=== PATIENT | female | born 1945 | race Caucasian/White ===

== ENCOUNTER → 2017-06-26 | Outpatient (CLI) | payer OTHER, BC ==
[2017-06-26 18:21] LABS: ALBUMIN 4.3 gm/dl (3.4-5.0); ALT/SGPT 29 U/L (12-78); AST/SGOT 24 U/L (15-37); BLOOD UREA NITROGEN 28 mg/dl (7-18); CALCIUM 9.1 mg/dl (8.5-10.1); CARBON DIOXIDE 29 mmol/L (21-32); CREATININE 0.69 mg/dl (0.60-1.20); GLUCOSE 94 mg/dl (70-99); POTASSIUM 3.7 mmol/L (3.5-5.1); SODIUM 140 mmol/L (136-145)
[2017-06-26 18:32] LABS: ALKALINE PHOSPHATASE 45 U/L (45-117); TOTAL PROTEIN 7.6 gm/dl (6.4-8.2)
== END | disposition home or self-care (01) ==
LOC: C.LABMFLN 15:07
PROVIDERS: ATTEND Family Medicine
DX: K90.0 Celiac disease (principal)

== ENCOUNTER → 2017-07-06 | Outpatient (CLI) | payer OTHER, BC | END | disposition home or self-care (01) | LOC: C.LABMFLN 14:03 | PROVIDERS: ATTEND Family Medicine | DX: E55.9 Vitamin D deficiency, unspecified (principal); K90.0 Celiac disease ==

== ENCOUNTER 2023-06-05 14:56 | Inpatient (IN) ==
[2023-06-05 15:54] LABS: Basophils # (auto) 0.01 K/uL (0.00-0.20); Basophils % (auto) 0.4 %; Eosinophils # (auto) 0.03 K/uL (0.00-0.50); Eosinophils % (auto) 1.2 %; Hematocrit (blood only) 26.6 % (37.0-47.0); Hemoglobin 8.6 g/dl (12.0-16.0); Immature Granulocytes # (auto) 0.01 K/uL (0.01-0.20); Immature Granulocytes % (auto) 0.4 %; Lymphocytes # (auto) 1.03 K/uL (1.20-3.40); Mean Corpuscular Hemoglobin 32.8 pg (25.0-34.0); Mean Corpuscular Hgb Conc 32.3 g/dL (32.0-36.0); Mean Corpuscular Volume 101.5 fL (80.0-100.0); Mean Platelet Volume 9.3 fL (9.4-12.4); Monocytes # (auto) 0.25 K/uL (0.11-0.59); Neutrophils # (auto) 1.18 K/uL (1.40-6.50); Platelet Count 152 K/uL (130-400); RDW Coefficient of Variation 15.8 % (11.5-14.5); RDW Standard Deviation 58.1 fL (36.4-46.3); Red Blood Count 2.62 M/uL (4.20-5.40); White Blood Count 2.51 K/ul (4.8-10.8)
[2023-06-05 16:09] LABS: Alanine Aminotransferase 9 U/L (7-52); Albumin Globulin Ratio 1.3 (0.9-2); Albumin Level 4.2 gm/dl (3.4-5.0); Alkaline Phosphatase 59 U/L (34-104); Anion Gap 9 (3-11); Aspartate Aminotransferase 18 U/L (13-39); BUN Creatinine Ratio 31.2 (10-20); Bilirubin,Total 0.6 mg/dl (0.2-1.0); Blood Urea Nitrogen 24 mg/dl (6-23); Calcium 9.5 mg/dl (8.6-10.3); Carbon Dioxide 24 mmol/L (21-32); Chloride 102 mmol/L (98-107); Est GFR (African American) 86.9 ml/min; Globulin 3.2 gm/dl (2.5-4.0); Glucose 95 mg/dl (70-99(Fasting)); Sodium 135 mmol/L (136-145); Total Protein 7.4 gm/dl (6.0-8.3)
--- NOTE | 2023-06-05 16:09 | Emergency Department Note ---
Impression & Plan Petechiae, Syncope, Right leg swelling, Leukopenia, Anemia ED Provider Note NAME: LIANET RODRIGUEZ AGE: 78 SEX: F : 1945 ARRIVES VIA: Walk-In INFORMANT: Patient, ED PROVIDER(S): Dheeraj Ulloa MD CHIEF COMPLAINT: Outpatient referral, syncope MEDICAL DECISION MAKING: The patient presents due to concern for syncope and was referred as an outpatient. IV was established and blood work is obtained. Patient's initial blood work shows leukopenia and anemia with a normal platelet count. The patient's kidney function is unremarkable. Prerenal azotemia noted. COVID flu and RSV negative. Initial troponin 27.6. Given the patient's repeated episodes of syncope today I do believe the patient would warrants inpatient treatment and monitoring. The patient is also not had a recent echocardiogram. I did speak with the on-call hospital service Dr. Hess the patient was admitted to the medicine service. DVT ultrasound negative. Discussion w/ other healthcare providers: Dr. Hess inpatient medicine service Prior /Outside records reviewed: I reviewed a primary care visit from May 10, [address] Yu. Patient was seen for petechial rash at that time. Patient did have an ultrasound of the arterial duplex lower extremity bilateral that was ordered in addition to CBC peripheral smear B12 folic acid and TSH. Differential diagnosis: Vasovagal event, dehydration, infection, hypoglycemia, electrolyte abnormalities, arrhythmia, pulmonary embolism, seizure among others were considered. Diagnostics, as interpreted by me: ECG: Sinus, rate of 89, normal intervals, normal axis no ST elevations. Cardiac monitoring: An order was placed for continuous cardiac monitoring. The monitor shows a rate of 85 with sinus rhythm. Patient was placed on pulse oximetry Medical decision rules: Wells score Imaging studies: I informally interpreted the patient's chest x-ray which does not show obvious pneumonia or pneumothorax with formal report to follow. HPI: Patient presents due to concern for episodes of syncope. The patient states that she has been passing out and had done so may be up to 7 times today. The patient states that the way that she do that sometime it passes sometimes she was watching the television and that it had gone further into the show and that she had a blank in her memory. Patient does not believe that she is having short-term memory issues or memory loss but believes that she is passing out. Patient denies any chest pains or shortness of breath. Patient denies any bloody stool or dark stools. Patient has been seen for worsening lower extremity swelling as well as bruising which has gotten progressively worse and that this began ever since she given amoxicillin prophylactically for dental procedure back in at the end of March. Patient states that she has been worked up substantially in the past to rule out things like leukemia and the other thing they have not ruled out is MGUS. The patient is also had 2 prior bone marrow biopsies. Patient is accompanied by her daughter who also confirms the same. PAST MEDICAL HISTORY: See Below PAST SURGICAL HISTORY: See Below SOCIAL HISTORY: See Below HOME MEDICATIONS: See Below ALLERGIES: See Below VITALS: See Below PHYSICAL EXAMINATION: GENERAL: NAD, non-toxic. EYE EXAM: Normal conjunctiva. PERRL, no anisocoria and EOM's grossly intact w/o pain. OROPHARYNX: Moist mucus membranes, grossly normal dentition. NECK: Supple, no nuchal rigidity, no adenopathy, non-tender. No signs of meningismus. FROM of the neck with good chin to chest and neck extension. No stridor. LUNGS: Clear to auscultation. Normal chest wall mechanics. HEART: NSR, no MRG. ABDOMEN: Abdomen soft, non-tender, no masses, no rebound or guarding. BACK: No CVA TTP. SKIN: Bruising noted most prominent to the posterior aspect of the right thigh and knee. Petechiae noted to the bilateral lower extremities UPPER EXTREMITIES: Upper extremities are grossly normal. LOWER EXTREMITIES: Grossly normal, right greater than left lower extremity edema with associated bruising/petechiae as noted above NEURO EXAM: A&O x3, cranial nerves II-XII grossly intact, normal speech, moves all 4 extremities. Past Med/Surg History Medical History Abnormal echocardiogram Nocturia Protein calorie malnutrition Abnormal CT scan, kidney Plasma cell dyscrasia MGUS Mitral valve prolapse Mild mitral valve prolapse, Mild MR per 01/2021 echo Elevated CK Following with [facility] neurosurgery- planning for future muscle biopsy (not done yet) Multiple lacunar infarcts Myalgia Seen by [facility] neurosurgery (12/23/21) for evaluation of myalgias, headache, eye pressure and facial discomfort for muscle biopsy- has not been completed yet Right sided weakness Right cervical radiculopathy Vertigo Coronary atherosclerosis Possible/noted on CT > evaluated by cardio, unremarkable echo performed- did not feel stress testing or coronary angiogram indicated per 01/2021 cardiology office visit Microscopic hematuria Hyperparathyroidism Hiatal hernia Hypothyroidism Tx [id number], "taken off of meds due to extreme weight loss" Multiple pulmonary nodules monitoring w/ PCP Osteoporosis, post-menopausal Surgical History History of bone marrow biopsy H/O colonoscopy History of esophagogastroduodenoscopy (EGD) + EUS H/O breast biopsy S/P tubal ligation H/O oophorectomy + left salpingectomy H/O dilation and curettage Family History Mother Heart disease Diabetes Myocardial infarction Pancreatic cancer Father CHF (congestive heart failure) Kidney disease Bladder cancer Myocardial infarction Grandfather Myocardial infarction Social History Smoking Status: Never smoker Second Hand Exposure: No; Do You Dip or Chew Tobacco: No; Hx Alcohol Use: No Hx Substance Use: No Preferred Language: Macedonian Communication Ability: Effective Visual Impairment: No Limitations 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 Required: No Beliefs That Will Affect Care: None Current Living Situation: Alone Feels Safe at Home: Yes Assistive Devices: None Allergies Allergies Allergy/AdvReac Type Severity Reaction Status Date / Time Iodinated Contrast Media Allergy Intermediate Hives Verified 05/10/23 13:24 azithromycin Allergy Rash Verified 06/02/23 10:18 clindamycin Allergy Rash Verified 06/02/23 10:18 mirabegron [From Myrbetriq] AdvReac Severe hallucinati Verified 05/10/23 13:24 ons amoxicillin AdvReac Intermediate Rash Verified 05/18/23 10:40 aspirin [From Percodan] AdvReac Intermediate constipatio Verified 05/10/23 13:24 n hydrocodone [From Vicodin] AdvReac Intermediate Nausea Verified 05/10/23 13:24 lorazepam AdvReac Intermediate "make me Verified 05/10/23 13:24 weird" oxycodone [From Percocet] AdvReac Intermediate constipatio Verified 05/10/23 13:24 n lactose AdvReac Verified 06/06/23 15:59 Amoxicillin Allergy Intermediate Rash Uncoded 05/18/23 11:04 erythromycin Allergy Rash Uncoded 06/02/23 10:18 Home Meds Previous Rx's Medication Instructions Recorded diazepam 5 mg tablet See Rx Instructions PO HS PRN 05/31/23 muscle spasm #60 tabs ergocalciferol (vitamin D2) 1,250 50,000 unit PO Q7D #7 caps 06/07/23 mcg (50,000 unit) capsule Results & Data (ED) Vital Signs Vital Signs - 24 hr 06/05/23 15:04 Temperature 36.5 C Temperature Source Temporal Artery Scan Pulse Rate 79 Pulse Rhythm Regular Respiratory Rate 20 Respiratory Effort / Characteristics Non-Labored Spontaneous Respiratory Depth Normal Blood Pressure 136/86 Blood Pressure Mean 102 Pulse Oximetry 97 Sepsis Recent Fever Within 48 Hours No Sepsis New/Unexplained Change in Mental Status No Sepsis Action Taken by Nursing No Action Required Home Medications Current Medication List: was personally reviewed by me Laboratory Data Attestation: I reviewed the patient's lab results. 06/07/23 08:12 06/07/23 08:12 Lab Results 06/05/23 06/05/23 Range/Units 15:28 17:31 WBC 2.51 L (4.8-10.8) K/ul RBC 2.62 L (4.20-5.40) M/uL Hgb 8.6 L (12.0-16.0) g/dl Hct 26.6 L (37.0-47.0) % MCV 101.5 H (80.0-100.0) fL MCH 32.8 (25.0-34.0) pg MCHC 32.3 (32.0-36.0) g/dL RDW Std Deviation 58.1 H (36.4-46.3) fL RDW Coeff of Carl 15.8 H (11.5-14.5) % Plt Count 152 (130-400) K/uL MPV 9.3 L (9.4-12.4) fL Immature Gran % (Auto) 0.4 % Neut % (Auto) 47.0 % Lymph % (Auto) 41.0 % Forest % (Auto) 10.0 % Eos % (Auto) 1.2 % Baso % (Auto) 0.4 % Neut # (Auto) 1.18 L (1.40-6.50) K/uL Lymph # (Auto) 1.03 L (1.20-3.40) K/uL Forest # (Auto) 0.25 (0.11-0.59) K/uL Eos # (Auto) 0.03 (0.00-0.50) K/uL Baso # (Auto) 0.01 (0.00-0.20) K/uL Immature Gran # (Auto) 0.01 (0.01-0.20) K/uL PT 11.4 (9.0-12.0) Seconds INR 1.0 (0.9-1.1) APTT 24 (21-31) Seconds PTT Ratio 0.9 Sodium 135 L (136-145) mmol/L Potassium 4.0 (3.5-5.1) mmol/L Chloride 102 (98-107) mmol/L Carbon Dioxide 24 (21-32) mmol/L Anion Gap 9 (3-11) BUN 24 H (6-23) mg/dl Creatinine 0.77 (0.6-1.2) mg/dl Est Cr Clr Drug Dosing Not Reportable Est GFR ( Amer) 86.9 ml/min Est GFR (Non-Af Amer) 75.0 ml/min BUN/Creatinine Ratio 31.2 H (10-20) Glucose 95 (70-99(Fasting)) mg/dl Calcium 9.5 (8.6-10.3) mg/dl Total Bilirubin 0.6 (0.2-1.0) mg/dl AST 18 (13-39) U/L ALT 9 (7-52) U/L Alkaline Phosphatase 59 (34-104) U/L Troponin I High Sens 27.6 H 21.3 H (0-14) pg/ml Total Protein 7.4 (6.0-8.3) gm/dl Albumin 4.2 (3.4-5.0) gm/dl Globulin 3.2 (2.5-4.0) gm/dl Albumin/Globulin Ratio 1.3 (0.9-2) SARS-CoV-2 (PCR) NEGATIVE (Negative) Influenza Type A (PCR) Negative (Neg) Influenza Type B (PCR) Negative (Neg) RSV (RT-PCR) Negative (Neg) Administered Medications Discontinued Medications Acetaminophen (Acetaminophen 325 Mg Tab) 650 mg PO Q4H PRN PRN Reason: Pain or Fever Stop: 07/05/23 19:37 Last Admin: 06/05/23 19:59 Dose: 650 mg Documented By: FIFIJ Acetaminophen (Acetaminophen 500 Mg Tab) 1,000 mg PO Q8H PRN PRN Reason: Pain or Fever Stop: 07/06/23 00:13 Last Admin: 06/07/23 06:48 Dose: 1,000 mg Documented By: Admin: 06/06/23 21:33 Dose: 1,000 mg Documented By: Admin: 06/06/23 11:33 Dose: 1,000 mg Documented By: Admin: 06/06/23 00:42 Dose: 1,000 mg Documented By: CAESAR Diazepam (Diazepam 5 Mg Tablet) 5 mg PO HS PRN PRN Reason: Muscle Spasm Stop: 07/06/23 00:11 Last Admin: 06/06/23 00:37 Dose: 5 mg Documented By: CAESAR Diazepam (Diazepam 5 Mg Tablet) 5 mg PO HS PRN PRN Reason: Muscle Spasm Stop: 07/06/23 00:11 Last Admin: 06/06/23 22:22 Dose: 5 mg Documented By: CAESAR Diazepam (Diazepam 5 Mg Tablet) 5 mg PO HS [facility] Stop: 07/06/23 20:59 Last Admin: 06/06/23 22:21 Dose: 5 mg Documented By: CAESAR Ergocalciferol (Ergocalciferol 50,000 Units 1250 Mcg Cap) 50,000 units PO Q7D [facility] Stop: 07/06/23 17:59 Last Admin: 06/06/23 21:32 Dose: 50,000 units Documented By: CAESAR Gadobutrol (Gadobutrol 65ml Vial) 4.5 ml IV ONCE ONE Stop: 06/06/23 19:05 Last Admin: 06/06/23 19:04 Dose: 4.5 ml Documented By: CAMILLA Hydromorphone HCl (Hydromorphone Inj 0.5 Mg/0.5 Ml Syr) 0.5 mg IV NOW ONE Stop: 06/06/23 04:14 Last Admin: 06/06/23 04:28 Dose: 0.5 mg Documented By: CAESAR Sodium Chloride (Nss) 1,000 mls @ 80 mls/hr IV .[id number] [facility] Stop: 06/07/23 18:29 Last Admin: 06/07/23 12:40 Dose: Not Given Documented By: Infusion: 06/07/23 12:40 Dose: Infused Documented By: Admin: 06/06/23 21:32 Dose: 80 mls/hr Documented By: CAESAR Polyethylene Glycol (Polyethylene (Miralax) 17 Gm Pack) 17 gm PO DAILY PRN PRN Reason: Constipation Stop: 07/06/23 22:35 Last Admin: 06/06/23 23:22 Dose: 17 gm Documented By: CAESAR Imaging Data Radiologist's Impression: Chest X-Ray 06/05/23 15:08 XR chest 1V not portable HISTORY: Chest pain, nonspecific COMPARISON: Chest 01/19/2022. FINDINGS: No pneumothorax. No pleural effusions. The lungs remain hyperexpanded. The heart is normal in size. Biapical densities persist and favor scarring. No new focal lung consolidations to suggest a pneumonia. No evidence for pulmonary edema. Emphysema again noted. No acute fractures. Vertebroplasty at L1. Calcifications within the aortic knob. IMPRESSION: No significant change compared to the prior study. No acute process. ACT 112: Negative or not required by law. Electronically signed by: Lukas Thomas M.D. 06/05/2023 4:36 PM Venous Doppler Study 06/05/23 16:42 BILATERAL LOWER EXTREMITY VENOUS DOPPLER HISTORY: Right leg swelling, petechiae, bruising COMPARISON STUDY: None. FINDINGS: There is normal compressibility, flow, and augmentation within the bilateral lower extremity deep venous systems. IMPRESSION: No DVT within the right or left lower extremity. ACT 112: Negative or not required by law. Electronically signed by: Lukas Thomas M.D. 06/05/2023 6:25 PM Discharge Plan Visit Data Chief Complaint: Referred by Doctor Stated Complaint: WAS TOLD TO COME IN ED Provider: Dheerja Ulloa Discharge Problem: Petechiae, Syncope, Right leg swelling, Leukopenia, Anemia Patient Disposition: Admitted As Inpatient Discharge Instructions Interventions: ED Discharge Assessment Last Done: 06/05/23 18:40 Discharge Problem: Syncope Qualifiers: Syncope type: unspecified Qualified Code(s): R55 - Syncope and collapse Leukopenia Qualifiers: Leukopenia type: unspecified Qualified Code(s): D72.819 - Decreased white blood cell count, unspecified Anemia Qualifiers: Anemia type: unspecified type Qualified Code(s): D64.9 - Anemia, unspecified
[2023-06-05 16:16] LABS: Troponin I High Sensitivity 27.6 pg/ml (0-14)
[2023-06-05 16:20] LABS: Partial Thromboplastin Ratio 0.9; Partial Thromboplastin Time 24 Seconds (21-31); Prothrombin Time 11.4 Seconds (9.0-12.0)
[2023-06-05 16:25] LABS: Influenza A virus by PCR Negative (Neg); Influenza B virus by PCR Negative (Neg); RSV by PCR Negative (Neg); SARS CoV2 RNA(COVID-19) Ceph NEGATIVE (Negative)
--- NOTE | 2023-06-05 16:37 | XRay Report ---
XR chest 1V not portable HISTORY: Chest pain, nonspecific COMPARISON: Chest 01/19/2022. FINDINGS: No pneumothorax. No pleural effusions. The lungs remain hyperexpanded. The heart is normal in size. Biapical densities persist and favor scarring. No new focal lung consolidations to suggest a pneumonia. No evidence for pulmonary edema. Emphysema again noted. No acute fractures. Vertebroplast y at L1. Calcifications within the aortic knob. IMPRESSION: No significant change compared to the prior study. No acute process. ACT 112: Negative or not required by law. Electronically signed by: Lukas Thomas M.D. 06/05/2023 4:36 PM
--- NOTE | 2023-06-05 17:42 | History & Physical Report ---
Date of Service June 05, 2023 Assessment & Plan (1) Syncope: Plan: Monitor on telemetry for arrhythmia Echocardiogram to assess for valvular disease Serial hemoglobin measurements - consider transfusion below 9 if ongoing syncopal episodes to rule this out as a cause History of Present Illness Chief Complaint: Syncope Primary Care Provider: Skyla Yu DO Shamika Reaves is a 78-year-old female who presents to the ER with 6-7 syncopal episodes. Associated dizziness, nausea, shortness of breath. Petechiae and bruising to bilateral lower extremities. She does not take any anticoagulation or antiplatelets. Allergies Allergy/AdvReac Type Severity Reaction Status Date / Time Iodinated Contrast Media Allergy Intermediate Hives Verified 05/10/23 13:24 azithromycin Allergy Rash Verified 06/02/23 10:18 clindamycin Allergy Rash Verified 06/02/23 10:18 mirabegron [From Myrbetriq] AdvReac Severe hallucinati Verified 05/10/23 13:24 ons amoxicillin AdvReac Intermediate Rash Verified 05/18/23 10:40 aspirin [From Percodan] AdvReac Intermediate constipatio Verified 05/10/23 13:24 n hydrocodone [From Vicodin] AdvReac Intermediate Nausea Verified 05/10/23 13:24 lorazepam AdvReac Intermediate "make me Verified 05/10/23 13:24 weird" oxycodone [From Percocet] AdvReac Intermediate constipatio Verified 05/10/23 13:24 n Amoxicillin Allergy Intermediate Rash Uncoded 05/18/23 11:04 erythromycin Allergy Rash Uncoded 06/02/23 10:18 Home Medications Medication Instructions Recorded Confirmed Type diazepam 5 mg tablet See Rx Instructions PO HS PRN 05/31/23 06/05/23 Rx muscle spasm #60 tabs Past Med/Surg History Medical History Abnormal CT scan, kidney Coronary atherosclerosis Elevated CK Hiatal hernia Hyperparathyroidism Hypothyroidism Microscopic hematuria Mitral valve prolapse Multiple lacunar infarcts Multiple pulmonary nodules Myalgia Nocturia Osteoporosis, post-menopausal Plasma cell dyscrasia Protein calorie malnutrition Right cervical radiculopathy Right sided weakness Vertigo Surgical History H/O breast biopsy H/O colonoscopy H/O dilation and curettage H/O oophorectomy History of bone marrow biopsy History of esophagogastroduodenoscopy (EGD) S/P tubal ligation Family History Mother Heart disease Diabetes Myocardial infarction Pancreatic cancer Father CHF (congestive heart failure) Kidney disease Bladder cancer Myocardial infarction Grandfather Myocardial infarction Social History Smoking Status: Never smoker Second Hand Exposure: No; Do You Dip or Chew Tobacco: No; Hx Alcohol Use: No Hx Substance Use: No Preferred Language: Lithuanian Communication Ability: Effective Visual Impairment: No Limitations Staff Genetic Counselor Required: No Beliefs That Will Affect Care: None Current Living Situation: Alone Feels Safe at Home: Yes Assistive Devices: Glasses Results & Data Results & Data Vital Signs (Past 12 Hours) Vital Signs Temp Pulse Pulse Resp BP BP Pulse Ox 06/05/23 17:17 79 20 97 06/05/23 17:00 84 18 135/70 96 06/05/23 16:45 83 18 164/68 H 96 06/05/23 15:04 36.5 C 79 20 136/86 97 O2 Del Method 06/05/23 17:17 Room Air 06/05/23 17:00 Room Air 06/05/23 16:45 Room Air 06/05/23 15:04 PG Care Time/CCT Total # of Minutes Spent Total Time Spent with Patient: Total time spent is greater than 50% in coordination of care (as documented) at patient's floor/unit and/or counseling patient: Coding Diagnoses Syncope R55
--- NOTE | 2023-06-05 18:26 | Ultrasound Report ---
BILATERAL LOWER EXTREMITY VENOUS DOPPLER HISTORY: Right leg swelling, petechiae, bruising COMPARISON STUDY: None. FINDINGS: There is normal compressibility, flow, and augmentation within the bilateral lower extremit y deep venous systems. IMPRESSION: No DVT within the right or left lower extremity. ACT 112: Negative or not required by law. Electronically signed by: Lukas Thomas M.D. 06/05/2023 6:25 PM
--- NOTE | 2023-06-05 19:30 | History & Physical Report ---
Date of Service June 05, 2023 Assessment & Plan (1) Syncope: Plan: 78 yo female with complicated PMHx including CVA, CAD, compression fx s/p kyphoplasty, ?plasma cell dyscrasia, osteoporosis, and protein calorie malnutrition presents with syncopal episodes. All of her specialists are with [facility] but remains with a Estefany Morocho PCP. #Syncope -presented with intermittent syncopal episodes over the past week, several this morning however none since being in ED. Unclear if these are actual syncopal episodes since all have been unwitnessed. She does seem to feel episodes come on. Cannot exclude seizure as well. She is with h/o CVA. Vitals wnl, afebrile. CXR unremarkable. -Head CT pending - if negative, can consider CTA head/neck -echo pending -orthostatics ordered -monitor on tele #Petechiae -presented with 2 months bilateral LE petechiae/bruising/pain following amoxicillin use. Slowly improving per patient. Platelet level normal. LFTs and synthetic liver function wnl. Peripheral smear (05/19) without thrombocytopenia nor myelodysplastic features. Consider hypersensitivity vasculitis. -LE venous Doppler without DVT -LE arterial US (05/19) without significant stenosis -she is very sensitive to medications/pain meds - cont. with tylenol for now #Leukopenia, chronic, stable -appears to have a diagnosis of MGUS per previous notes - follows with [facility] heme/onc -peripheral smear shows leukopenia 2/2 absolute lymphopenia #Anemia -Hgb 8.4 on admission, baseline ~11. MCV elevated. Peripheral smear showing normocytic anemia. Suspect multifactorial due to chronic disease, nutritional deficiencies. -B12 level in 300s - consider supplementation as this was higher in the past -vitamin d level pending DVT ppx: ambulation FEN/GI: HH Code Status: DNR/DNI Dispo: PCU (2) Petechiae: (3) History of compression fracture of spine: (4) Protein calorie malnutrition: (5) Plasma cell dyscrasia: (6) Multiple lacunar infarcts: (7) Hyperparathyroidism: Admission and Anticipated Discharge Date Admission Date: June 05, 2023 History of Present Illness Chief Complaint: syncope, petechiae Primary Care Provider: Skyla Yu DO 78 yo female with complicated PMHx including CVA, CAD, compression fx s/p kyphoplasty, ?plasma cell dyscrasia, osteoporosis, and protein calorie malnutrition presents with syncopal episodes. All of her specialists are with [facility] but remains with a Estefany Morocho PCP. 2 months ago patient had a dose of amoxicillin prior to oral surgery and a few hours after intake experienced severe muscle stiffness. She did discuss this with her oral surgeon and following the surgery was advised to take half dosing going forward. After a few days on the lower dose she developed sudden onset petechiae and bruising over her lower extremities with associated pain. The petechiae and bruising have been slowly improving but are still very evident. Pain is constant even at rest. Then over the past week she has been experiencing some syncopal episodes. She notes that she will feel the episodes come on she will try to brace herself on a chair. Following that she will pass out from anywhere from 1 to 30 minutes and wake up completely normal without confusion. She notes that this morning this occurred about 6 times within 2 hours which prompted her to come to the emergency room. She is with history of chronic fatigue. She also does endorse some shortness of breath on exertion. Otherwise denies headache, vision changes, chest pain, abdominal pain, nausea, vomiting, dysuria. Of note patient states she is very sensitive to medications in general so she been hesitant with pain medications over the years. Allergies Allergy/AdvReac Type Severity Reaction Status Date / Time Iodinated Contrast Media Allergy Intermediate Hives Verified 05/10/23 13:24 azithromycin Allergy Rash Verified 06/02/23 10:18 clindamycin Allergy Rash Verified 06/02/23 10:18 mirabegron [From Myrbetriq] AdvReac Severe hallucinati Verified 05/10/23 13:24 ons amoxicillin AdvReac Intermediate Rash Verified 05/18/23 10:40 aspirin [From Percodan] AdvReac Intermediate constipatio Verified 05/10/23 13:24 n hydrocodone [From Vicodin] AdvReac Intermediate Nausea Verified 05/10/23 13:24 lorazepam AdvReac Intermediate "make me Verified 05/10/23 13:24 weird" oxycodone [From Percocet] AdvReac Intermediate constipatio Verified 05/10/23 13:24 n Amoxicillin Allergy Intermediate Rash Uncoded 05/18/23 11:04 erythromycin Allergy Rash Uncoded 06/02/23 10:18 Home Medications Medication Instructions Recorded Confirmed Type diazepam 5 mg tablet See Rx Instructions PO HS PRN 05/31/23 06/05/23 Rx muscle spasm #60 tabs Past Med/Surg History Medical History Abnormal CT scan, kidney Coronary atherosclerosis Elevated CK Hiatal hernia Hyperparathyroidism Hypothyroidism Microscopic hematuria Mitral valve prolapse Multiple lacunar infarcts Multiple pulmonary nodules Myalgia Nocturia Osteoporosis, post-menopausal Plasma cell dyscrasia Protein calorie malnutrition Right cervical radiculopathy Right sided weakness Vertigo Surgical History H/O breast biopsy H/O colonoscopy H/O dilation and curettage H/O oophorectomy History of bone marrow biopsy History of esophagogastroduodenoscopy (EGD) S/P tubal ligation Family History Mother Heart disease Diabetes Myocardial infarction Pancreatic cancer Father CHF (congestive heart failure) Kidney disease Bladder cancer Myocardial infarction Grandfather Myocardial infarction Social History Smoking Status: Never smoker Second Hand Exposure: No; Do You Dip or Chew Tobacco: No; Hx Alcohol Use: No Hx Substance Use: No Preferred Language: Kazakh Communication Ability: Effective Visual Impairment: No Limitations Escalator Mechanic Required: No Beliefs That Will Affect Care: None Current Living Situation: Alone Other Information That Helps Us Care for You: No Feels Safe at Home: Yes Safety Concerns: Feels Safe At This Time Assistive Devices: Glasses Review of Systems Review of Systems: All systems reviewed & are unremarkable except as noted in HPI & below Physical Exam Physical Exam: Constitutional: in no acute distress, pleasant and normal affect, intact memory. AOx3. Vitals as above. HEENT: No scleral injection or discharge.Moist mucous membranes. Clear orop harynx without exudate. Neck: Supple without lymphadenopathy or thyromegaly. Trachea midline. Lungs: Clear to auscultation bilaterally with good effort. No wheezes/rales/rhonchi. Cardiac: RRR. No murmurs.+Trace lower extremity edema R>L. 2+ distal peripheral pulses. Bilateral forefoot cold to touch. Abdomen: Soft, nontender, and nondistended.No guarding. No hepatosplenomegaly. MSK: Extremities motor strength 5/5. Skin: +bilateral lower extremity non blanching petechiae with associated ecchymosis. Neurologic: No focal deficits. PERRL. Results & Data Results & Data Vital Signs (Past 12 Hours) Vital Signs Temp Pulse Pulse Resp BP BP Pulse Ox 06/05/23 17:17 79 20 97 06/05/23 17:00 84 18 135/70 96 06/05/23 16:45 83 18 164/68 H 96 06/05/23 15:04 36.5 C 79 20 136/86 97 O2 Del Method 06/05/23 17:17 Room Air 06/05/23 17:00 Room Air 06/05/23 16:45 Room Air 06/05/23 15:04 Laboratory Results Laboratory Results WBC 2.51 K/ul (4.8-10.8) L 06/05/23: RBC 2.62 M/uL (4.20-5.40) L 06/05/23: Hgb 8.6 g/dl (12.0-16.0) L 06/05/23: Hct 26.6 % (37.0-47.0) L 06/05/23 MCV 101.5 fL (80.0-100.0) H 06/05/23: MCH 32.8 pg (25.0-34.0) 06/05/23 MCHC 32.3 g/dL (32.0-36.0) 06/05/23 RDW Std Deviation 58.1 fL (36.4-46.3) H 06/05/23 RDW Coeff of Carl 15.8 % (11.5-14.5) H 06/05/23 Plt Count 152 K/uL (130-400) 06/05/23 MPV 9.3 fL (9.4-12.4) L 06/05/23 Immature Gran % (Auto) 0.4 % 06/05/23 Neut % (Auto) 47.0 % 06/05/23 Lymph % (Auto) 41.0 % 06/05/23: Morrow % (Auto) 10.0 % 06/05/23: Eos % (Auto) 1.2 % 06/05/23 Baso % (Auto) 0.4 % 06/05/23 Neut # (Auto) 1.18 K/uL (1.40-6.50) L 06/05/23: Lymph # (Auto) 1.03 K/uL (1.20-3.40) L 06/05/23 Morrow # (Auto) 0.25 K/uL (0.11-0.59) 06/05/23 Eos # (Auto) 0.03 K/uL (0.00-0.50) 06/05/23 Baso # (Auto) 0.01 K/uL (0.00-0.20) 06/05/23 Immature Gran # (Auto) 0.01 K/uL (0.01-0.20) 06/05/23 PT 11.4 Seconds (9.0-12.0) 06/05/23 INR 1.0 (0.9-1.1) 06/05/23 APTT 24 Seconds (21-31) 06/05/23 PTT Ratio 0.9 06/05/23 Sodium 135 mmol/L (136-145) L 06/05/23 Potassium 4.0 mmol/L (3.5-5.1) 06/05/23 Chloride 102 mmol/L (98-107) 06/05/23 Carbon Dioxide 24 mmol/L (21-32) 06/05/23 Anion Gap 9 (3-11) 06/05/23 BUN 24 mg/dl (6-23) H 06/05/23 Creatinine 0.77 mg/dl (0.6-1.2) 06/05/23 Est Cr Clr Drug Dosing Not Reportable 06/05/23 Est GFR ( Amer) 86.9 ml/min 06/05/23 Est GFR (Non-Af Amer) 75.0 ml/min 06/05/23: BUN/Creatinine Ratio 31.2 (10-20) H 06/05/23: Glucose 95 mg/dl (70-99(Fasting)) 06/05/23: Calcium 9.5 mg/dl (8.6-10.3) 06/05/23: Total Bilirubin 0.6 mg/dl (0.2-1.0) 06/05/23: AST 18 U/L (13-39) 06/05/23: ALT 9 U/L (7-52) 06/05/23: Alkaline Phosphatase 59 U/L (34-104) 06/05/23: Troponin I High Sens 21.3 pg/ml (0-14) H 06/05/23 17:31 Total Protein 7.4 gm/dl (6.0-8.3) 06/05/23: Albumin 4.2 gm/dl (3.4-5.0) 06/05/23: Globulin 3.2 gm/dl (2.5-4.0) 06/05/23: Albumin/Globulin Ratio 1.3 (0.9-2) 06/05/23 15: SARS-CoV-2 (PCR) NEGATIVE (Negative) 06/05/23: Influenza Type A (PCR) Negative (Neg) 06/05/23: Influenza Type B (PCR) Negative (Neg) 06/05/23: RSV (RT-PCR) Negative (Neg) 06/05/23: Impressions Chest X-Ray 06/05/23 15:08 XR chest 1V not portable HISTORY: Chest pain, nonspecific COMPARISON: Chest 01/19/2022. FINDINGS: No pneumothorax. No pleural effusions. The lungs remain hyperexpanded. The heart is normal in size. Biapical densities persist and favor scarring. No new focal lung consolidations to suggest a pneumonia. No evidence for pulmonary edema. Emphysema again noted. No acute fractures. Vertebroplasty at L1. Calcifications within the aortic knob. IMPRESSION: No significant change compared to the prior study. No acute process. ACT 112: Negative or not required by law. Electronically signed by: Lukas Thomas M.D. 06/05/2023 4:36 PM Venous Doppler Study 06/05/23 16:42 BILATERAL LOWER EXTREMITY VENOUS DOPPLER HISTORY: Right leg swelling, petechiae, bruising COMPARISON STUDY: None. FINDINGS: There is normal compressibility, flow, and augmentation within the bilateral lower extremity deep venous systems. IMPRESSION: No DVT within the right or left lower extremity. ACT 112: Negative or not required by law. Electronically signed by: Lukas Thomas M.D. 06/05/2023 6:25 PM Code Status & VTE Plan VTE Prophylaxis Plan VTE Prophylaxis will be ordered: Yes Supervising Physician Co-Signing Physician Notes I personally saw and examined the patient. I verified all turner points and agree with resident physician Dr Pee Seaman, with the following exceptions and/or additions: 78 year old medically complex female presents to the ER with recurrent "syncope". She reports current episodes started on Monday. They can occur at any time but while walking she is able to lower herself to the floor, then she loses consciousness. She describes other times as more of a time lapse while watching television she may notice 15 minutes have lapsed in her show. This is on a background of recent lower extremity rash and pain which she relates to amoxicillin use 6 weeks ago. She reports this has mostly been improving but still getting new bruising on her right extremity. Despite multiple syncopal events she denies any trauma to her right leg. She reports having XRs previously without fracture O/E A&Ox3, HS RRR, no murmurs, Chest CTAB, Abdo SNT, BS normal, no unilateral weakness, PERRL, CN 2-> 12 intact, ecchymosis with various stages of healing on right leg with associated swelling of her right > left leg. Petechiae on b/l lower extremities A/P Syncope - unwitnessed. unclear cause or if related to her recent ecchymosis/petechia from recent amoxicillin use. Appears more syncope than absence seizure from history. General plan is to see if this occurs again as an inpatient while on telemetry to rule out arrhythmia. TTE to assess for valvular pathology. Orthostatics in AM. If only occurring at home with stress - catatonia remains a possibility. Possible vasovagal related to pain. CT head with no intracranial abnormality. Macrocytic anemia - significant prior workup for this and diagnosis of MGUS with multiple bone biopsies. 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 basic anemia workup ordered but suspect she may need myeloma workup again if not recently performed and anemia persistent. B/L leg pain - suspect secondary to significant non traumatic ecchymosis. If nerve conduction studies not recently performed would recommend this is done as an outpatient. Avoid NSAIDs due to current petechiae. Avoid gabapentin as discussed with the patient as likely to make her drowsy. Coags and Platelets normal. Resident Activity Tracking Resident Involvement: Resident Care Provided Care Provided: Adult [facility]
[2023-06-05] MEDS ORDERED: ACETAMINOPHEN 325 MG TAB PO PRN (19:38)
--- NOTE | 2023-06-05 20:55 | CT Scan Report ---
Exam(s): CT HEAD Without Contrast EXAM: CT Head Without Intravenous Contrast CLINICAL HISTORY: Reason for exam: syncope. TECHNIQUE: Axial computed tomography images of the head/brain without intravenous contrast. CTDI is 35.65 mGy and DLP is 624.41 mGy-cm. Automated exposure control was utilized for the study. A dose lowering technique was utilized adhering to the principles of ALARA. COMPARISON: No relevant prior studies available. FINDINGS: Brain: Chronic periventricular ischemic demyelination changes seen due to small vessel disease. No hemorrhage. Ventricles: Unremarkable. No ventriculomegaly. Bones/joints: Unremarkable. No acute fracture. Soft tissues: Unremarkable. Sinuses: Unremarkable as visualized. No acute sinusitis. Mastoid air cells: Unremarkable as visualized. No mastoid effusion. IMPRESSION: No acute intracranial abnormality Electronically signed by: Cedrick Arellano MD 06/05/23 20:53 PM
[2023-06-05 21:00] LABS: Amphetamines+Metham, Urine Neg (Neg); Barbiturates, Urine Neg (Neg); Benzodiazepine, Urine Pos (Neg); Cocaine, Urine Neg (Neg); MDMA (Ecstacy), Urine Neg (Neg); Marijuana, Urine Neg (Neg); Methadone, Urine Neg (Neg); Opiate, Urine Neg (Neg); Phencyclidine, Urine Neg (Neg)
--- OUTSIDE RECORDS SUMMARY | 2023-06-05 23:22 | External Medical Summary | Summary of Care ---
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 Name Role Phone Charlene Ambriz MD Primary Care Provide r Reason for Visit * Reason Comments NEW PATIENT * Evaluate & Treat - Unlimited Visits (Within 10 days (routine)) - Closed Specialty Diagnoses / Procedures Referred By Contac t Referred To Contact Hospice and Palliative Medicine / Palliative Medicine Diagnoses Multiple myeloma not having achieved remission (HCC) Sandhya Dumont MD [address] [place] [address] Referral ID Status Reason Start Date Expiration Date V isits Requested Visits Authorized [id number] Closed Specialty Services Required 03/25/[phone] Encounter Details Date Type Department Care Team (Late st Contact Info) Description 06/01/2023 2:00 PM EST Office Visit Palliative Medicine [facility] (Former[facility]3] [address], [place] [phone] Vikki Luong MD [address], [place] [phone] Severe protein-energy malnutrition (HCC)*; Spontaneous ecchymoses; Low weight; Petechiae or ecchymoses; Chronic pain syndrome; Palliative care encounter; Neuropathic pain of both legs; MGUS (monoclonal gammopathy of unknown significance) Allergies Active Allergy Reactions Criticality Noted Date Comments Amoxicillin 06/01/2023 Swelling and pain in lower extremities Aspirin Other (Please comment) High 02/24/2022 Lorazepam Other (Please comment) 02/11/2021 "It made me weird" Azithromycin 06/01/2023 Swelling and pain in lower extremities Clindamycin 06/01/2023 Swelling and pain in lower extremities Hydrocodone Nausea/vomiting 03/01/2022 Iodine Hives High 02/24/2022 Ivp Dye High 03/02/2023 Other Reaction(s): Hives Mirabegron High 03/02/2023 Other Reaction(s): hallucinations Oxycodone Neuro complications (Please comment) 03/01/2022 Altered mental status documented as of this encounter (statuses as of 06/02/2023) Medications No known medicationsdocumented as of this encounter (statuses as of 06/02/2023) Active Problems Problem Noted Date Diagnosed Date Osteoporosis with current pathological fracture, sequela 06/01/2023 Petechiae or ecchymoses 06/01/2023 Neuropathic pain of both legs 06/01/2023 MGUS (monoclonal gammopathy of unknown significa nce) 06/01/2023 Chronic pain syndrome 06/01/2023 Palliative care encounter 06/01/2023 Spontaneous ecchymoses 06/01/2023 Low weight 03/17/2023 Hyperparathyroidism, primary 03/17/2023 Nocturia 03/17/2023 Severe protein-energy malnutrition 03/02/2022 ADVANCE DIRECTIVE INFORMATION 09/11/2012 Overview: Yes, It is in her chart. 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 Weight loss, unintentional 07/28/2017 1 Positional vertigo 06/27/2010 Follow-up examination, follo wing other surgery 07/11/2007 03/17/2023 Other specified pre-operative examination 07/03/2007 03/17/2023 Malaise and fatigue 07/31/2006 03/17/20 23 Hypercalcemia 01/12/2006 03/17/2023 Ovarian cyst 03/17/2023 Endocrine disorder 3 Hypothyroidism 03/17/2023 documented as of this encounter (statuses as of 06/02/2023) Immunizations Name Administration Dates Next Due COVID-19 mRNA, LNP-s, No Pre serve, 2-Dose Series (Pfizer) 04/20/2021,03/25/2021 COVID-19, LNP-s, No Preserve , Jt-sucrose, Ages 12+ (Pfizer) 11/25/2021 Pneumococcal Conjugate Vacc, 13 Valent (Prevnar) 10/02/2014 Pneumococcal Polysaccharide PPV23 (Pneumovax) 05/22/2013,07/05/2012 Seasonal Influenza, Split, I IV3, With Preserve, Inj 03/05/2017,02/14/2013,03/29/2012,05/09,02/22/2010 TDAP (age 11 and older)(Adacel) 03/31/2008 Zoster Vaccine Recombinant (Shingrix) 02/27/2020 ,03/26/2019 documented as of this encounter Social History Tobacco Use Types Packs/Day Years Used Date Smoking Tobacco: Never Smokeless Tobacco: Never Tobacco Cessation:Counseling Given: Not Answered Alcohol Use Standard Drinks/Week Comments No 0 (1 standard drink = 0.6 oz pur e alcohol) PHQ-2 Answer Date Recorded PHQ Adult Total Score 1 03/17/2023 Sex and Gender Information Value Date Recorded Sex Assigned at Female 03/17/2023 2:05 PM EDT Gender Identity Female 03/17/2023 2:05 PM EDT Sexual Orientation Straight 03/17/2023 2: 05 PM EDT Job Start Date Occupation Industry Not on file Not on file Not on file documented as of this encounter Last Filed Vital Signs Vital Sign Reading Time Taken Comments Blood Pressure 120/78 06/01/2023 2:13 PM EST Pulse 80 06/01/2023 2:13 PM EST Temperature 36.1 C (96.9 F) 06/01/2023 2:13 PM ES T Respiratory Rate 16 06/01/2023 2:13 PM EST Oxygen Saturation 100% 06/01/2023 2:13 PM EST Inhaled Oxygen Concentration - - Weight 41.3 kg (91 lb) 06/01/2023 2:13 PM EST fr om home Height 154.9 cm (5' 1") 06/01/2023 2:13 PM EST Body Mass Index 17.19 06/01/2023 2:13 PM EST documented in this encounter Functional Status Functional Status Response Date of Assess ment Are you deaf or do you have serious difficulty h earing? No 04/16/2022 Are you blind or do you have serious difficulty seeing, even when wearing glasses? No 04/16/2022 Do you have serious difficul ty walking or climbing stairs? (5 years old or older) No 04/18/2022 Do you have difficulty dress ing or bathing? (5 years old or older) No 04/16/2022 Because of a physical, menta l, or emotional condition, do you have difficulty doing errands alone such as visiting a doctor s office or shopping? (15 years old or older) Yes 04/16/20 Cognitive Status Response Date of Assessm ent Because of a physical, menta l, or emotional condition, do you have serious difficulty concentrating, remembering, or making decisions? (5 years old or older) No 04/16/2022 documented as of this encounter Progress Notes * Vikki Luong MD - 06/01/2023 2:25 PM EST Images from the original note were not included. OUTPATIENT CONSULT NOTE - Palliative Medicine Name: Shamika Reaves Date: 06/01/2023 REASON FOR CONSULT: We have been asked to see this patient for Symptom Management Patient accompanied by No one ( daughter was in the waiting room) HPI: hSamika Reaves is a (an) 78 year old female referred for assistance with back pain from a compression fracture, weight loss and functional bowel symptoms, neuropathic pain, stable MGUS and ziggy after amoxicillin, multiple analgesic intolerances. 71 year old female seen at the request of Dr. Covington - She saw Dr. Covington in October for an urticarial rash, and incidentally mentioned her complaints of abdominal pain, weight loss and fullness -she was subsequently referred to our clinic. Pt describes upper abdominal pressure for the past 3.5 years. She describes intermittent episodes of epigastric abdominal pressure; episodes are sporadic, but on average, once every 2 weeks. She is not sure of what triggers these episodes, although she feels better when she has been fasting. She has a marked sensation of early satiety or fullness in her abdomen. She denies abdominal distention. When she gets these episodes, pain will last for several hours. "It won't go away on its own" -- she will take 5-10 mg of Valium + tylenol, and then she has prompt relief of symptoms after this coktail. She has tried multiple PPI's, papaya, peppermint oil - no relief. Her diet has become quite restricted, as she has eliminated foods to help with these symptoms. "I eat the same thinkgs every day -- it has to be liquid, or soft." "In the morning, for dinner, I eat potato roll with two slices of cook islander cheese, icecream, and yogurt for dinner. She feels like if she varies from this diet, or if she eats a larger quantity of food, she is more likely to have pain; this pain is more likely to happen with cruciferous vegetables, and raw fruit -- she avoids these foods altogether. She has had weight loss of apporximately 15 lbs over the past 3 years, although recently her weighthas been stable as she has consciously been trying to eat more. Denies nausea, gerd symptoms, dysphagia, bowel movements unremarkable. Denies body image issues. ROS: Three and a half years ago, she had vertigo, abdominal symptoms as above, episodes of flushing, hives. "There was a long going on at that time... It was my dad's last year of life." She reports some obssessive and compulsive behaviors. She has urticaria that is precipiated by showerin in hot or cold water; she also will haves precipirated by itching. Her Hives were noted by Dr. Verduzco in 2013. Dr. Verduzco's notes mention multiple unexplained somatic complaints, for which she has received extensive w/u for. She has reported complaints of pelvic pain and pressure, palpitations, vertigo when shewas previously seeing him; she has undergone w/u for pheo, celiac disease, porphyria, carcinoid, Marathon's syndrome, PET scanning, pelvic uls, abd CT,MRI of brain. These results are not available (done at [facility]) but were reportedly normal. She was considered for diagnoses of somatoform d/o, depression/anxiety, and fibromyalgia, and given treatments with Benzos and Savella. 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 She recently her PCP and Dr. Peters, who wish for her to undergo fuller-endoscopy. Labs form [facility] reviewed - Deamidated gliadin IgG mildly positive in 2015 with normal TTG IgA (iGA levels not checked); copper, zinc, vit E, ferritin levels all WNL. 09/2020: She is now seen for weight loss. Her weight in 2017 was 42 kg; her weight today was 42 lbs. She drank only water for a week, and lost 10 lbs. She then added foods back in; she is now following an IBS diet, a hiatal hernia diet, a low fructose diet. Her weight is now at 90 lbs. She eats a small amounts at a time; has early satiety abd bloating. Denies abdominal pain, n/v, GERD, diarrhea, abdominal pain. Diet = breakfast PBand J lunchables; lunch = Jc's potato roll. Very little Had labs done at PCP office that was normal. CT 02/2020 no acute process wtihin chest/abd/pelvis. MRI kidneys 05/10 WNL 11/2020: No new complaints, weight is stable. Has not had diarrhea or flushing. W/o showed no micronutrient deficiency. Her fecal elastase was moderately low. Pancreatic MRI was normal. 02/2021 Last visit, told to take panc enzymes at low dose - 1 tab Creon per day. She has not done this yet. Seen by cards, neuro -- had mildly elevated CPK; ESR 38. 4/222: Tried Creon 1 tab a day - first two weeks she did well, with improvement in appetite, food tolerance, and bloating. She reports that every year, for four years in a row, around [facility], she develops headaches described as retro-orbital pressure, pain and stiffness, globus sensation, sense of malaise. She has no worsening GI symptoms during this time. She took prednisone for 1 weeks, because her CPK was 600, AST was 40. She reports weakness, loss ofappetite with prednisone. She remains on restricted diet. Her GI symptoms are stable. 05/2022 Diagnosed with MGUS. Has compression fracture that was initially thought to be myeloma related, nowthought to be osteoporosis, s/p kyphoplasty. Eating more, although food choices remain restricted. Since Diet has expanded, she has been having upper abdominal pain radiating bilaterally. No GERD sx, no constipation. 11/11: For the past 2 weeks, had had sense of incomplete evacuation, tenesmus, stool frequency with passage of small had BM's. She attributes symptom to Myrbetriq. 01/11: For the past month.... She has pain in upper abdomen if she presses on her abdomen. Her appetite is small volume. She has upper abdominal distention after eating her largest meal. She has pressure in lower abdomen worse in the evening. SHe has constant nausea, worse since Monday. She has mild dysphagia in neck to solids. She has formed large volume BM's 4 x day. No urgency, bleeding. Abt 2 hours after eating, she will have pain between shoulder blades, chest pain. Pain will last 4-6 hours, occurs every night for the past month. Symptoms acutely worsened this past week. She attributes symptoms to Gemtesa, which she took for 3 weeks in October. She has had a compression fracture of her back status post kyphoplasty but has had some chronic back pain. She had a dental procedure around April and had amoxicillin which resulted in a rash withpetechiae found in the perioral region on her lips and lower extremities associated with pain whichsounds like a leukocytoclastic vasculitis. She has a vasculitis laboratory panel that is to be drawn in the near future. She states that she has some autism. She has been admitted twice to palliativemedicine at [place] and was given mirtazapine, steroids, gabapentin and opioids and had adverse reactions to them requiring repeat hospitalization. She has had a trial of Cymbalta with intolerance.She was recently given a prescription by her family physician for fentanyl transdermal. Her main reason for being here is pain as described above. PALLIATIVE ENCOUNTER FROM TODAY'S VISIT: 06/01/2023 REVIEW OF SYMPTOMS: [Severity scale of each symptom should be based on how the patient feels now.] 1. Pain Assessment: Yes: Severity: , radiating from her back down her pelvis to her feet. This is achiness and burning. She has a palpable petechial rash which seems to be resolving and ecchymosis of the right leg with some swelling. Current Analgesic Regimen: None 2. Shortness of Breath Assessment: Yes: Severity: Current Regimen: None 3. Nausea Assessment: None Current Regimen: None 4. Tiredness/Fatigue Assessment: Yes: Severity: Current Regimen: None 5. Drowsiness Assessment: None 6. Depression Assessment: 1. During the past month, has patient been bothered by feeling down, depressed, or hopeless? No 2. During the past month, has patient been bothered by having little interest or pleasure in doing things? No I believe that she is experiencing demoralization from her medical illnesses rather than depression. Current Regimen: none 7. Anxiety Assessment: Yes: Severity: Current Regimen: None 8. Anorexia/Lack of Appetite: Yes: Severity: Current Regimen: None 9. Well-being Assessment: Unable to respond 10. Constipation Assessment: variable Current Regimen: None 11. Insomnia Assessment: NA Current Regimen: None 12. Oropharyngeal Secretions or Cough: No Current Regimen: Others: none FUNCTIONALITY: 60% - Ambulation: Reduced, Unable hobby/housework / Significant disease. Self-care: Occasional assistance necessary. Intake: Normal or reduced. Conscious level: Full or confusion. ADVANCED DIRECTIVES AND [place] ORDERS FOR LIFE-SUSTAINING TREATMENT: The patient has expressed into recent encounters that she did not want to be resuscitated. I did not query her about formal advanced directives PAST MEDICAL HISTORY: Past Medical History: Diagnosis Date Endocrine disorder Emma's disease Hypercalcemia 01/12/2006 Hypothyroidism Incipient senile cataract OU INFORMATION FH glaucoma Intractable back pain Malaise and fatigue 07/31/2006 Osteoporosis Ovarian cyst Serous ovarian cyst Positional vertigo 06/27/2010 Vertigo PAST SURGICAL HISTORY: Past Surgical History: Procedure Laterality Date BONE MARROW BIOPSY N/A 02/25/2022 BONE MARROW BIOPSY (IES) performed by Gilbert Concepcion DO at OR [facility] BONE MARROW BIOPSY Left 04/19/2022 BONE MARROW BIOPSY (IES) performed by Gilbert Concepcion DO at OR [facility] BREAST LESION,OTHER,EXCISION Right 1985 benign EGD, FLEXIBLE, DIAGNOSTIC N/A 08/17/2017 mild to moderate inflammation/ESOPHAGOGASTRODUODENOSCOPY (EGD), FLEXIBLE, TRANSORAL, DIAGNOSTIC performed by Luc Ballard MD at ENDOSCOPY [facility] EGD, W/ENDOSCOPIC US N/A 08/17/2017 normal/ESOPHAGOGASTRODUODENOSCOPY (EGD), FLEXIBLE, TRANSORAL, ENDOSCOPIC ULTRASOUND performed by Luc Ballard MD at ENDOSCOPY [facility] LAPAROSCOPY DIAGNOSTIC 07/11/2007 LAPAROSCOPY DIAGNOSTIC performed by CESAR MEI at OR [facility] LIGATE/CUT OVIDUCT(S) NONE no major surgery PERC VERTEBRAL AUGMENTATION LUMBAR KYPHOPLASTY 01/21/2022 FAMILY HISTORY: Family History Problem Relation Age of Onset Cancer Mother Pancreatic Cancer Diabetes Mother Heart Disorder Mother Hypertension Mother Cancer Father bladder Heart Disorder Father Glaucoma Father Hypertension Father Diabetes Grandmother (Maternal) Family History: noncontributory SOCIAL HISTORY: Social History Socioeconomic History Marital status: Number of children: 1 Occupational History Employer: [employer] Tobacco Use Smoking status: Never Smokeless tobacco: Never Vaping Use Vaping Use: Never used Substance and Sexual Activity Alcohol use: No Drug use: No Sexual activity: Never Social History Narrative Lives in [place], 1 adult child, Hannah 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 Her daughter is a support system and her brother guide her through the medical system. No current outpatient medications on file. No current facility-administered medications for this visit. ALLERGIES: Aspirin, Iodine, Ivp dye, Mirabegron, Amoxicillin, Ativan [lorazepam], Azithromycin, Clindamycin, Hydrocodone, and Oxycodone PHYSICAL EXAMINATION: Constitutional: (+) ill appearing, (+) cachectic HEENT: normal: normocephalic, atraumatic; no masses, tenderness, or adenopathy Eyes: sclera and conjunctiva normal Neck: supple, normal range of motion CV: normal rate and rhythm, no murmur, gallops or rub Chest: normal respiratory effort, lungs clear to auscultation and percussion Abdomen: normal: soft, bowel sounds normal, no masses, tenderness or organomegaly, mildly protuberant but not tender Extremities: no clubbing, cyanosis, or edema, otherwise grossly normal, warm, and dry, the lower extremities revealed multiple petechiae which were palpable and ecchymoses particularly around the medial aspect of her right foot. She could stand and her leg strength was modest and able to support her. There was swelling of the right leg. Skin: As mentioned above : Neuro: alert, oriented to person, place, and time, normal mental status exam, there was no aphasia or focal weakness. Her conversation occasionally became tangential but her interactions were normal. Psych: nonsuicidal, my sense is she is more demoralized and a bit anxious rather than depressed. There is no evidence of delirium. She had a small degree of kyphosis and tenderness about a prominent vertebral area around L1-L2 LABS REVIEWED: Yes. ed Result Highlights SERUM PROTEIN ELECTROPHORESIS REFLEX PROFILE Final result 05/19/2023 Albumin 4.14 Alpha-1 Globulin 0.33 High Alpha-2 Globulin 1.01 High Beta-Globulin 0.97 Gamma-Globulin 1.46 Electrophoresis Interpretation Abnormal. 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 IMAGING REVIEWED: Yes. CT ABD/PELVIS WO IV/ORAL CONTRAST Order: [id number] Status: Final result Visible to patient: Yes (seen) Next appt: 06/13/2023 at 01:30 PM in *[facility]* (Soni Martínez MD) 0 Result Notes Details Reading Physician Reading Date Result Priority Almaz Franco MD [phone] 04/16/2022 Narrative & Impression PROCEDURE INFORMATION: Exam: CT Abdomen And Pelvis Without Contrast Exam date and time: 04/16/2022 8:19 AM Age: 77 years old Clinical indication: Patient HX: Patient C/O weakness, back pain and weight loss. HX of fall and FX of spine and kyphoplasty. Recent bone bx shows multiple myeloma. TECHNIQUE: Imaging protocol: Computed tomography of the abdomen and pelvis without contrast. Radiation optimization: All CT scans at this facility use at least one of these dose optimization techniques: automated exposure control; mA and/or kV adjustment per patient size (includes targeted exams where dose is matched to clinical indication); or iterative reconstruction. COMPARISON: PT PET CT WHOLE BODY 03/04/2022 12:28 PM FINDINGS: Lungs: 0.4 cm right lower lobe nodule, image 5 series 3. 0.4 cm left lower lobe nodule, image 1. Patchy airspace opacities with interlobular septal thickening in the left lower lobe. Pleural spaces: Small left pleural effusion. Liver: Hepatomegaly. Gallbladder and bile ducts: Mild cholelithiasis, with moderate intraluminal sludge. Pancreas: No ductal dilation. Spleen: No splenomegaly. Adrenal glands: No mass. Kidneys and ureters: Abnormal positioning of the right kidney within the anterior lower abdomen, likely related to patient body habitus and hepatomegaly. No nephrolithiasis. No hydronephrosis. Stomach and bowel: No obstruction. No mucosal thickening. Appendix: No evidence of appendicitis. Intraperitoneal space: Trace free fluid along the margin of the inferior right hepatic lobe. Mild generalized mesenteric edema. No free air. Vasculature: Atherosclerotic changes. Lymph nodes: No enlarged lymph nodes. Urinary bladder: No acute abnormality. Reproductive: No acute abnormality. Bones/joints: Generalized bony demineralization. Postsurgical changes of vertebral augmentation at L1. Additional mild subacute/chronic appearing superior endplate compression deformities at L2 and L3. Degenerative changes within the scoliotic spine, with varying degrees of neuroforaminal narrowing. Soft tissues: No focal soft tissue swelling. IMPRESSION IMPRESSION: Left basilar parenchymal changes, which may reflect pneumonia. Small nonspecific pulmonary nodules as above. In the absence of high-risk factors such as smoking, no further workup is necessary. If high-risk factors are present, consider CT scan of the chest without contrast in 12 months to document stability. (Source Fleischner Society 2017, [facility]) Cholelithiasis with gallbladder sludge. Consider ultrasound for further evaluation, as clinically indicated. Subacute/chronic appearing compression deformities at L2 and L3. Clinical correlation for point tenderness recommended. ASSESSMENT/PLAN: Shamika Reaves is a/an 78 year old female referred for consultation to Palliative Medicine withthe primary diagnosis of: Low back pain presumably from a compression fracture status post kyphoplasty. She also has described a peripheral neuropathy which may be secondary to her MGUS. 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 She has significant drug intolerances. Pain management: She has not appropriate for long-term follow-up in palliative medicine but these are my suggestions. It would be reasonable to try palmitoylethanolamide which could be acquired through [facility]. Palmitoylethanolamide Has significant analgesic activity demonstrated in multiple systematic reviews and meta analysis. It has worked in neuropathic pain. It is a substance that are brain normally produces and has no known side effects. The dose would be 400 mg twice a day. Second-line would be a buprenorphine 5 mcg an hour patch. I would avoid fentanyl for several reasons. She has significant weight loss so absorption through the skin would be diminished and it has a very narrow utility between analgesia and respiratory depression were buprenorphine has a very wide utility. Buprenorphine is scheduled 3 opioid andin a consensus guideline published in 2008 it was suggested to be the opioid to use in the elderly.The patch is changed once a week and the initial dose is 5 mcg an hour. The placement of the patch is rotated on a weekly basis. We have not made a return appointment for her as she has multiple physicians that are following her. Our service usually does not see people with chronic non cancer pain.Literature was given regarding both drugs to Shamika to be reviewed. There are no diagnoses linked to this encounter. Time spent 60 minutes. Vikki Luong MD 06/01/2023 2:26 PM documented in this encounter Nursing Notes * Davide Mosley MED ASSIST - 06/01/2023 2:21 PM EST Room 7 Patient was instructed to not get up on the exam table/exam chair until directed and assisted by their provider; patient is to remain seated in the chair/ wheelchair/ exam table/ exam chair for fall prevention and safety reasons. Patient is aware to have assistance to step down off exam table/exam chair with personnel. Patient voiced full comprehension of instructions. documented in this encounter Plan of Treatment Upcoming Encounters Date Type Department Care Team (Late st Contact Info) Description 06/13/2023 1:30 PM EST Office Visit Urology, [place] [address] [place], [place] [phone] Soni Martínez MD [facility] [address] [place], [place] [phone] 06/19/2023 3:30 PM EST Telemedicine Hematology Oncology [facility], [address] [phone] Fiona Espinoza MD [facility] [place] [address] 06/22/2023 3:00 PM EST Office Visit Neurology, [address] [address] Lorenzo Peters MD [address] [place] [address] 06/29/2023 11:00 AM EST Office Visit Wound Care, [address] [phone] Catherine Alfaro [facility] [address] [place] [address] 06/30/2023 1:30 PM EST Office Visit General Internal Medicine, [place] [address] [place], [place] [phone] Charlene Ambriz MD [facility] [address] [place], [place] [phone] 07/11/2023 2:00 PM EST Office Visit Endocrinology, [place] [address] [place], [place] [phone] Daysi Olsen MD [facility] [address] [place], [place] [phone] 08/15/2023 12:20 PM EDT Office Visit Infectious Disease [facility] [address] [place] [phone] Dulce [facility]azquez [facility] [address] [facility] [address] 08/22/2023 2:40 PM EDT Office Visit Gastroenterology, [facility] [place] [address] James Fernandez MD [address] [facility] [place] [address] 08/24/2023 2:00 PM EDT Office Visit Ophthalmology, [place] [address] [place] [address] Petey Michel MD [address] [place] [address] Pending Results Name Type Priority Associated Diagnoses Date /Time ANCA REFLEX PANEL Lab Routine Spontaneous ecchymoses 06/01/2023 3:50 PM EST REFERRED TEST, [facility] (LAB USE ONLY) Lab Routine Spontaneous ecchymoses 06/01/2023 3:50 PM EST ANCA, IFA Lab Routine Spontaneous ecchymoses 06/01/2023 3:50 PM EST Scheduled Procedures Name Priority Associated Diagnoses Date/Ti me COLONOSCOPY FLEXIBLE PROXIMAL DIAGNOSTIC Recall Microscopic colitis ESOPHAGOGASTRODUODENOSCOPY ( EGD), FLEXIBLE, TRANSORAL, DIAGNOSTIC Recall Microscopic colitis Health Maintenance Due Date Last Done Comments COVID-19 Vaccine (2022-2 4 season) 2023 11/25/2021, 04/20/2021, 03/25/2021 Influenza Vaccine (FLU shot) (#1) 2023 02/24/2022, 03/11/2021, 02/27/2020, Additional history exists DXA Scan 10/02/2023 10/01/2020, 08/20, 09/21/2010, Additional history exists Depression Screening 03/17/2024 03/17/2023 Colonoscopy Discontinued 08/29/2005 Colorectal Cancer Screening Discontinued Zoster Vaccines Completed 02/27/2020, 03/26/2019 Cologuard Discontinued Fecal Occult Blood Test Discontinued Sigmoidoscopy Discontinued documented as of this encounter Medical Devices Not on filedocumented as of this encounter Procedures Procedure Name Priority Date/Time Associated Diagnosis Comments CRP (INFLAMMATORY MARKER) Routine 06/01/2023 3:50 PM EST Spontaneous ecchymoses COMPLEMENT C4 Routine 06/01/2023 3:50 PM EST Spontaneous ecchymoses COMPLEMENT C3 Routine 06/01/2023 3:50 PM EST Spontaneous ecchymoses documented in this encounter Results * COMPLEMENT C4 (06/01/2023 3:50 PM EST) Complement C4 10 10 - 40 mg/dL 06/01/2023 5:33 PM EST [facility] Blood Venous blood specimen / Unknown Venipuncture / Unknown 06/01/2023 3:50 PM EST 06/01/2023 3:57 PM EST Skyla Yu DO LAB BLOOD ORDERA BLES Performing Organization Address City/[facility]/ZIP Co de Phone Number LABORATORY [facility] [address] [place] [address] * COMPLEMENT C3 (06/01/2023 3:50 PM EST) Pathologist [facility] Complement C3 121 90 - 180 mg/dL 06/01/2023 5:33 PM EST LABORATORY [facility] Blood Venous blood specimen / Unknown Venipuncture / Unknown 06/01/2023 3:50 PM EST 06/01/2023 3:57 PM EST Skyla Yu DO LAB BLOOD ORDERA BLES Performing Organization Address City/[facility]/ZIP Co de Phone Number LABORATORY [facility] [address] [place] [address] * (ABNORMAL) CRP (INFLAMMATORY MARKER) (06/01/2023 3:50 PM EST) CRP (Inflammatory Marker) 8(H) <=5 mg/L 06/01/2023 4:38 PM EST [facility] Blood Venous blood specimen / Unknown Venipuncture / Unknown 06/01/2023 3:50 PM EST 06/01/2023 3:57 PM EST Skyla Yu DO LAB BLOOD ORDERA BLES [facility] [address] [place] [address] documented in this encounter Visit Diagnoses Diagnosis Severe protein-energy malnutrition (HCC)- Primary Other severe protein-calorie malnutrition Spontaneous ecchymoses Low weight Underweight Petechiae or ecchymoses Spontaneous ecchymoses Chronic pain syndrome Palliative care encounter Encounter for palliative care Neuropathic pain of both legs Mononeuritis of lower limb, unspecified MGUS (monoclonal gammopathy of unknown significance) Monoclonal paraproteinemia documented in this encounter Advance Directives Documents on File Type Date Recorded 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 Question Answer Comments Discussion of Advance Directives occurred with: Patient Code Status History Code Status Date Activated Date Inactivated Comments No Code 03/01/2022 4:37 PM 03/03/2022 7:34 PM Thi s order reflects the patients wishes and were consensually agreed upon. Question Answer Comments Discussion of Advance Directives occurred with: Patient/Family Does the patient have a Living Will? No Does the patient have Health Care Power of Communications Systems Engineer? No Full Code 06/25/2010 9:52 PM 06/26/2010 7:08 PM This or joel reflects the patients wishes and were consensually agreed upon. Question Answer Comments Discussion of Advance Directives occurred with: Not Discussed Does the patient have a Living Will? No Does the patient have Health Care Power of Communications Systems Engineer? No Full Code 07/11/2007 8:27 PM 07/12/2007 3:50 PM Full Code 07/11/2007 1:34 PM 07/11/2007 8:27 PM Care Teams Band Machine Operator Relationship Specialty Start Date End Date Charlene Ambriz MD [address] [place] [address] PCP - General Internal Medicine 01/20/23 documented as of this encounter
--- OUTSIDE RECORDS SUMMARY | 2023-06-05 23:22 | External Medical Summary ---
Author Name Unknown Address Unknown Organization [id number]:LABORATORY C - [address] [place] [address] Laboratory Report Ordering Provider Test Date Status SUMMER IGLESIAS 05/19/2023 13:03:34 Final Observation Date Value Abnormality Reference (Units ) Status IgG 05/19/2023 13:03:34 2399 382-8108 ( mg/dL) Final IgA 05/19/2023 13:03:34 346 70-400 (mg /dL) Final IgM 05/19/2023 13:03:34 119 40-230 (mg /dL) Final Performing Location [facility] - [address] [place] [address]
--- OUTSIDE RECORDS SUMMARY | 2023-06-05 23:22 | External Medical Summary ---
Author Name Unknown Address Unknown Organization [id number]:LABORATORY [facility] - [address] [place] [address] Laboratory Report Ordering Provider Test Date Status ANNE-MARIE MAKI 06/01/2023 15:50:39 Final Observation Date Value Abnormality Reference (Units ) Status Neutrophil cytoplasmic Ab [Presence] in Serum by Immunofluorescence 06/01/2023 15:50:39 Negative Negative Final Neutrophil cytoplasmic Ab [Presence] in Serum by Immunofluorescence 06/01/2023 15:50:39 Negative Negative Final Negative for ANCA. Performing Location LABORATORY [facility] - [address] [place] [address]
--- OUTSIDE RECORDS SUMMARY | 2023-06-05 23:22 | External Medical Summary ---
Author Name Unknown Address Unknown Organization [id number]:LABORATORY [facility] - [address] [place] [address] Laboratory Report Ordering Provider Test Date Status KELSIE,SUMMER 05/19/2023 13:03:34 Final Observation Date Value Abnormality Reference (Units ) Status SYNC LEUKOCYTES IN BLOOD BY AUTOMATED COUNT 05/19/2023 13:03:34 2.53 Below low normal 4.00-10.80 (K/uL) Final Neutrophils/100 leukocytes in Blood by Manual count 05/19/2023 13:03:34 59.0 40.0-75.0 (%) Final Lymphocytes/100 leukocytes in Blood by Manual count 05/19/2023 13:03:34 39.0 18.0-42.0 (%) Final Monocytes/100 leukocytes in Blood by Manual count 05/19/2023 13:03:34 2.0 1.0-11.0 (%) Final Neutrophils [#/volume] in Blood by Manual count 05/19/2023 13:03:34 1.49 Below low normal 1.80-7.70 (K/uL) Final Lymphocytes [#/volume] in Blood by Manual count 05/19/2023 13:03:34 0.99 Below low normal 1.00-4.80 (K/uL) Final Monocytes [#/volume] in Blood by Manual count 05/19/2023 13:03:34 0.05 0.00-1.10 (K/uL) Final Performing Location LABORATORY [facility] - [address] [facility] [address] [place] [address]
--- OUTSIDE RECORDS SUMMARY | 2023-06-05 23:22 | External Medical Summary | Summary of Care ---
Author Name Unknown Organization [facility] Address [address] [place] [address] Phone [phone] Care Team Providers Care Computer Support Specialist Name Role Phone Charlene Ambriz MD Primary Care Provide r Reason for Visit * Reason Comments NEW PATIENT * Evaluate & Treat - Unlimited Visits (Within 10 days (routine)) - Closed Specialty Diagnoses / Procedures Referred By Contac t Referred To Contact Hospice and Palliative Medicine / Palliative Medicine Diagnoses Multiple myeloma not having achieved remission (HCC) Sandhya [place] MD [address] [place] [address] Referral ID Status Reason Start Date Expiration Date V isits Requested Visits Authorized [id number] Closed Specialty Services Required 03/25/[phone] Encounter Details Date Type Department Care Team (Late st Contact Info) Description 06/01/2023 2:00 PM EST Office Visit Palliative Medicine [facility] [address] [place], [place] [phone] Vikki Luong MD [address] [place], [place] [phone] Severe protein-energy malnutrition (HCC)*; Spontaneous ecchymoses; Low [...] as of this encounter (statuses as of 06/01/2023) Medications No known medicationsdocumented as of this encounter (statuses as of 06/01/2023) Active Problems Problem Noted Date Diagnosed Date [...] as of this encounter (statuses as of 06/01/2023) Resolved Problems Problem Noted Date Diagnosed Date [...] as of this encounter (statuses as of 06/01/2023) Immunizations Name Administration Dates Next Due COVID-19 [...] daughter was in the waiting room) HPI: Shamika Reaves is a (an) 78 year old [...] eat potato roll with two slices of cayman islander cheese, icecream, and yogurt for dinner. [...] w/u for pheo, celiac disease, porphyria, carcinoid, [place]'s syndrome, PET scanning, pelvic uls, abd CT,MRI of brain. These results are not available (done at [facility]) but were reportedly normal. She was considered [...] for her to undergo fuller-endoscopy. Labs form [facility] reviewed - Deamidated gliadin IgG mildly positive [...] for four years in a row, around [facility], she develops headaches described as retro-orbital [...] has been admitted twice to palliativemedicine at [place] and was given mirtazapine, steroids, gabapentin and [...] Past Medical History: Diagnosis Date Endocrine disorder [place]'s disease Hypercalcemia 01/12/2006 Hypothyroidism Incipient senile cataract OU INFORMATION FH glaucoma Intractable back pain Malaise and fatigue 07/31/2006 Osteoporosis Ovarian cyst Serous ovarian cyst Positional vertigo 06/27/2010 Vertigo PAST SURGICAL HISTORY: Past Surgical History: Procedure Laterality Date BONE MARROW BIOPSY N/A 02/25/2022 BONE MARROW BIOPSY (IES) performed by Gilbert Concepcion DO at OR [facility] BONE MARROW BIOPSY Left 04/19/2022 BONE MARROW BIOPSY (IES) performed by Gilbert Concepcion DO at OR [facility] BREAST LESION,OTHER,EXCISION Right 1985 benign EGD, FLEXIBLE, DIAGNOSTIC N/A 08/17/2017 mild to moderate inflammation/ESOPHAGOGASTRODUODENOSCOPY (EGD), FLEXIBLE, TRANSORAL, DIAGNOSTIC performed by Luc Ballard MD at ENDOSCOPY [facility] EGD, W/ENDOSCOPIC US N/A 08/17/2017 normal/ESOPHAGOGASTRODUODENOSCOPY (EGD), FLEXIBLE, TRANSORAL, ENDOSCOPIC ULTRASOUND performed by Luc Ballard MD at ENDOSCOPY [facility] LAPAROSCOPY DIAGNOSTIC 07/11/2007 LAPAROSCOPY DIAGNOSTIC performed by CESAR MEI at OR [facility] LIGATE/CUT OVIDUCT(S) NONE no major surgery PERC VERTEBRAL AUGMENTATION LUMBAR KYPHOPLASTY 01/21/2022 FAMILY HISTORY: Family History Problem Relation Age of Onset Cancer Mother Pancreatic Cancer Diabetes Mother Heart Disorder Mother Hypertension Mother Cancer Father bladder Heart Disorder Father Glaucoma Father Hypertension Father Diabetes Grandmother (Maternal) Family History: noncontributory SOCIAL HISTORY: Social History Socioeconomic History Marital status: Number of children: 1 Occupational History Employer: [employer] Tobacco Use Smoking status: Never Smokeless tobacco: Never Vaping Use Vaping Use: Never used Substance and Sexual Activity Alcohol use: No Drug use: No Sexual activity: Never Social History Narrative Lives in [place], 1 adult child, 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 CT ABD/PELVIS WO IV/ORAL CONTRAST Order: [id number] Status: Final result Visible to patient: Yes (seen) Next appt: 06/13/2023 at 01:30 PM in *[facility]* (Soni Martínez MD) 0 Result Notes Details Reading Physician Reading Date Result Priority Almaz Franco MD [phone] 04/16/2022 Narrative & Impression PROCEDURE INFORMATION: Exam: [...] to document stability. (Source Fleischner Society 2017, [facility]) Cholelithiasis with gallbladder sludge. Consider ultrasound [...] try palmitoylethanolamide which could be acquired through [email or web address]. Palmitoylethanolamide Has significant analgesic activity demonstrated in [...] 06/13/2023 1:30 PM EST Office Visit Urology, [place] [address] [place], [place] [phone] Soni Martínez MD [facility] [address] [place], [place] [phone] 06/19/2023 3:30 PM EST Telemedicine Hematology Oncology [facility], [address] [address] Fiona Espinoza MD [facility] [place] [place] [address] 06/22/2023 3:00 PM EST Office Visit Neurology, [address] [address] Lorenzo Peters MD [address] [place] [address] 06/29/2023 11:00 AM EST Office Visit Wound Care, [address] [phone] Catherine Alfaro [facility] [address] [place] [address] 06/30/2023 1:30 PM EST Office Visit General Internal Medicine, [place] [address] [place], [place] [phone] Charlene Ambriz MD [facility] [address] [place], [place] [phone] 07/11/2023 2:00 PM EST Office Visit Endocrinology, [place] [address] [place], [place] [phone] Daysi Olsen MD [facility] [address] [place], [place] [phone] 08/15/2023 12:20 PM EDT Office Visit Infectious Disease [facility] [address] [place] [phone] Dulce Velazquez MD [address] [facility] [place] [address] 08/22/2023 2:40 PM EDT Office Visit Gastroenterology, [facility] [place] [address] James Fernandez MD [facility] [place] [address] 08/24/2023 2:00 PM EDT Office Visit Ophthalmology, [place] [address] [place] [address] Petey Michel MD [address] [place] [address] Pending Results Name Type Priority Associated Diagnoses Date /Time CRP (INFLAMMATORY MARKER) Lab Routine Spontaneous ecchymoses 06/01/2023 3:50 PM EST COMPLEMENT C3 Lab Routine Spontaneous ecchymoses 06/01/2023 3:50 PM EST COMPLEMENT C4 Lab Routine Spontaneous ecchymoses 06/01/2023 3:50 PM EST ANCA REFLEX PANEL Lab Routine Spontaneous ecchymoses [...] Not on filedocumented as of this encounter Visit Diagnoses Diagnosis Severe protein-energy [...] Documents on File Type Date Recorded 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 No Full Code 06/25/2010 9:52 PM 06/26/2010 7:08 PM This or joel reflects the patients wishes and were consensually agreed upon. Question Answer Comments Discussion of Advance Directives occurred with: Not Discussed Does the patient have a Living Will? No Does the patient have Health Care Power of Cash Applications Specialist? No Full Code 07/11/2007 8:27 PM 07/12/2007 3:50 PM Full Code 07/11/2007 1:34 PM 07/11/2007 8:27 PM Care Teams Computer Support Specialist Relationship Specialty Start Date End Date Charlene Ambriz MD [address] [facility] [place] [address] PCP - General Internal Medicine 01/20/23 documented as of this encounter
--- OUTSIDE RECORDS SUMMARY | 2023-06-05 23:22 | External Medical Summary | Summary of Care ---
Author Name Unknown Organization [facility] Address [address] [place] [address] Phone [phone] Care Team Providers Care Operator Helper Name Role Phone Charlene Ambriz MD Primary Care Provide r Encounter Details Date Type Department Care Team (Latest Contact Info) Description 05/19/2023 12:17 PM EST - 05/19/2023 11:59 PM EST Hospital Encounter Radiology, [address] [phone] Arrived Discharge Disposition: Home - Self Care Allergies Active Allergy Reactions Criticality Noted Date Comments Aspirin Other (Please comment) High 02/24/2022 Lorazepam Other (Please comment) 02/11/2021 "It made me weird" Hydrocodone Nausea/vomiting 03/01/2022 Iodine Hives High 02/24/2022 Ivp Dye 11/17/2006 Noted today at CAT Scan; per pt had only 1 hive each time Oxycodone Neuro complications (Please comment) 03/01/2022 Altered mental status documented as of this encounter (statuses as of 05/20/2023) Medications No known medicationsdocumented as of this encounter (statuses as of 05/20/2023) Active Problems Problem Noted Date Diagnosed Date Low weight 03/17/2023 Hyperparathyroidism, primary 03/17/2023 Nocturia 03/17/2023 Severe protein-energy malnutrition 03/02/2022 ADVANCE DIRECTIVE INFORMATION 09/11/2012 Overview: Yes, It is in her chart. Osteoporosis documented as of this encounter (statuses as of 05/20/2023) Resolved Problems Problem Noted Date Diagnosed Date Resolved Date Polypharmacy 04/16/2022 03/17/2023 Generalized weakness 04/16/2022 023 Intractable back pain 03/01/20222022 Multiple myeloma not having achieved remission 03/01/2022 03/17/2023 [place]'s disease 07/28/2017 03/17/2023 Weight loss, unintentional 07/28/2017 1 Positional vertigo 06/27/2010 3 Follow-up examination, follo wing other surgery 07/11/2007 03/17/2023 Other specified pre-operative examination 07/03/2007 03/17/2023 Malaise and fatigue 07/31/2006 03/17/20 Hypercalcemia 01/12/2006 03/17/2023 Ovarian cyst 03/17/2023 Endocrine disorder 3 Hypothyroidism 03/17/2023 documented as of this encounter (statuses as of 05/20/2023) Immunizations Name Administration Dates Next Due COVID-19 mRNA, LNP-s, No Pre serve, 2-Dose Series ([employer]) 04/20/2021,03/25/2021 COVID-19, LNP-s, No Preserve , Jt-sucrose, [...] Date Smoking Tobacco: Never Smokeless Tobacco: Never Alcohol Use Standard Drinks/Week Comments No 0 [...] on file documented as of this encounter Functional Status Functional Status Response [...] No 04/16/2022 documented as of this encounter Plan of Treatment Upcoming Encounters Date Type Department Care Team (Late st Contact Info) Description 06/01/2023 2:00 PM EST Office Visit Palliative Medicine [address] [address] Vikki [place] [address] 06/13/2023 1:30 PM EST Office Visit Urology, [address] [address] Soni Martínez [place] [address] 06/19/2023 3:30 PM EST Telemedicine Hematology Oncology [address] [phone] Fiona Espinoza MD [address] [place] [address] 06/22/2023 3:00 PM EST Office Visit Neurology, [place] [address] [place] [phone] Lorenzo Peters MD [facility] [place] [address] 06/29/2023 11:00 AM EST Office Visit Wound Care, [facility] [address] [place] [address] Catherine Alfaro DPM [address] [place] [address] 06/30/2023 1:30 PM EST Office Visit General Internal Medicine, [facility] [address] [place] [address] Charlene Ambriz MD [address] [place] [address] 08/15/2023 12:20 PM EDT Office Visit Infectious Disease [address] [address] Dulce Velazquez MD [address] [place] [address] 08/22/2023 2:40 PM EDT Office Visit Gastroenterology, [facility] [address] [place] [address] James Fernandez MD [address] [place] [address] 08/24/2023 2:00 PM EDT Office Visit Ophthalmology, [address] [phone] Petey Michel MD [address] [facility] [place] [address] Pending Results Name Type Priority Associated Diagnoses Date /Time XR KNEE 3 VIEWS Medical Imaging Routine Dorsalgia Pain in unspecified knee 05/19/2023 12:53 PM EST XR FOOT 2 VIEWS Medical Imaging Routine Dorsalgia Pain in unspecified knee 05/19/2023 12:53 PM EST XR L SPINE COMPLETE Medical Imaging Routine Dorsalgia Pain in unspecified knee 05/19/2023 12:53 PM EST Scheduled Procedures Name Priority Associated Diagnoses Date/Ti me COLONOSCOPY FLEXIBLE PROXIMAL DIAGNOSTIC Recall Microscopic colitis ESOPHAGOGASTRODUODENOSCOPY ( EGD), FLEXIBLE, TRANSORAL, DIAGNOSTIC Recall Microscopic colitis Health Maintenance Due Date Last Done Comments DTaP,Tdap,and Td Vaccines (2 - Td or Tdap) 03/31/2018 03/31/2008 DXA Scan 10/01/2022 10/01/2020, 08/20, 09/21/2010, Additional history exists COVID-19 Vaccine ( season) 2023 11/25/2021, 04/20/2021, 03/25/2021 Influenza Vaccine (FLU shot) (#1) 2023 02/24/2022, 03/11/2021, 02/27/2020, Additional history exists Depression Screening 03/17/2024 03/17/2023 Colonoscopy Discontinued 08/29/2005 Colorectal Cancer Screening Discontinued Pneumococcal Vaccine: 65+ Years Completed 10/02/2014, 05/22/2013, 07/05/2012 Hepatitis C Screening Completed 10/26/2016 Zoster Vaccines Completed 02/27/2020, 03/26/2019 VITAMIN D LEVEL ONCE IN A LIFETIME-USE SMARTSET# [id number] Completed 12/01/2022, 10/02/2020, 11/21/2018, Additional history exists Cologuard Discontinued Fecal Occult Blood Test Discontinued GARDASIL-HPV IMMUNIZATION SERIES Aged Out No longer eligible based on patient's age to complete this topic Hepatitis B Aged Out No longer eligi ble based on patient's age to complete this topic MENINGOCOCCAL (MENACTRA/MENVEO) Aged Out No longer eligible based on patient's age to complete this topic Sigmoidoscopy Discontinued documented as of this encounter Medical Devices Not on filedocumented as of this encounter Advance Directives Documents on File Type Date Recorded 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 No Full Code 06/25/2010 9:52 PM 06/26/2010 7:08 PM This or joel reflects the patients wishes and were consensually agreed upon. Question Answer Comments Discussion of Advance Directives occurred with: Not Discussed Does the patient have a Living Will? No Does the patient have Health Care Power of Brake Assembler? No Full Code 07/11/2007 8:27 PM 07/12/2007 3:50 PM Full Code 07/11/2007 1:34 PM 07/11/2007 8:27 PM Care Teams Operator Helper Relationship Specialty Start Date End Date Charlene Ambriz MD [address] [place] [address] PCP - General Internal Medicine 01/20/23 documented as of this encounter
--- OUTSIDE RECORDS SUMMARY | 2023-06-05 23:22 | External Medical Summary | Summary of Care ---
Author Name Unknown Organization [facility] Address [address] [place] [address] Phone [phone] Care Team Providers Care Sole Rounder Name Role Phone Charlene Ambriz MD Primary Care Provide r Reason for Visit * Reason Onset Date Comments Other 04/07/2023 Encounter Details Date Type Department Care Team (Late st Contact Info) Description 04/07/2023 Telephone Gastroenterology, [address] [address] [facility] [address] Other Allergies Active Allergy Reactions Criticality Noted Date Comments Aspirin Other (Please comment) High 02/24/2022 Lorazepam Other (Please comment) 02/11/2021 "It made me weird" Hydrocodone Nausea/vomiting 03/01/2022 Iodine Hives High 02/24/2022 Ivp Dye 11/17/2006 Noted today at CAT Scan; per pt had only 1 hive each time Oxycodone Neuro complications (Please comment) 03/01/2022 Altered mental status documented as of this encounter (statuses as of 05/23/2023) Medications No known medicationsdocumented as of this encounter (statuses as of 05/23/2023) Active Problems Problem Noted Date Diagnosed Date Low weight 03/17/2023 Hyperparathyroidism, primary 03/17/2023 Nocturia 03/17/2023 Severe protein-energy malnutrition 03/02/2022 ADVANCE DIRECTIVE INFORMATION 09/11/2012 Overview: Yes, It is in her chart. Osteoporosis documented as of this encounter (statuses as of 05/23/2023) Resolved Problems Problem Noted Date Diagnosed Date Resolved Date Polypharmacy 04/16/2022 03/17/2023 Generalized weakness 04/16/2022 023 Intractable back pain 03/01/20222022 Multiple myeloma not having achieved remission 03/01/2022 03/17/2023 [place]'s disease 07/28/2017 03/17/2023 Weight loss, unintentional 07/28/2017 1 Positional vertigo 06/27/2010 3 Follow-up examination, follo wing other surgery 07/11/2007 03/17/2023 Other specified pre-operative examination 07/03/2007 03/17/2023 Malaise and fatigue 07/31/2006 03/17/20 23 Hypercalcemia 01/12/2006 03/17/2023 Ovarian cyst 03/17/2023 Endocrine disorder 3 Hypothyroidism 03/17/2023 documented as of this encounter (statuses as of 05/23/2023) Immunizations Name Administration Dates Next Due COVID-19 [...] No 04/16/2022 documented as of this encounter Miscellaneous Notes * Telephone Encounter - More Tomlin RN - 05/23/2023 2:48 PM EST Addressed in later MyG message by provider. * Telephone Encounter - Lotus Sesay RN - 05/12/2023 8:48 AM EST Patient calling. She repeated what she had told Rica previously (in previous note). Is now asking if you can order a CEA and CA 19-9 blood test before she decides to proceed with a colonoscopy/EGD. Understands her insurance company may not pay for these test and states, "oh well" if they do not agree to pay. She will pay OOP. Are you willing to order these blood tests for her? Thanks * Telephone Encounter - Rica Willis OSA - 04/07/2023 10:01 AM EST Fyi Pt called in stating that she saw a diagnostician wants her to do the following items in order: Wants pt to see Zinc Plating Machine Operator w/ labs See neurologist at [place] Have EGD / Colon last on the list. Pt is scheduled to see you in August to discuss the EGD / colon with you and if she should do it or not. CLEMENT Manning 04/07/2023 10:10 AM documented in this encounter Plan of Treatment Upcoming Encounters Date Type Department Care Team (Late st Contact Info) Description 06/01/2023 2:00 PM EST Office Visit Palliative Medicine [facility], [address] [address] Vikki Luong MD [place] [address] 06/13/2023 1:30 PM EST Office Visit Urology, [address] [address] Soni Martínez MD [place] [address] 06/19/2023 3:30 PM EST Telemedicine Hematology Oncology [facility], [address] [phone] Fiona Espinoza MD [place] [address] 06/22/2023 3:00 PM EST Office Visit Neurology, [address] [phone] Lorenzo Peters MD [address] [place], [place] [address] [place] [address] 06/29/2023 11:00 AM EST Office Visit Wound Care, [facility] [address] [place] [address] Catherine Alfaro, DPM [address] [place] [address] 06/30/2023 1:30 PM EST Office Visit General Internal Medicine, [facility] [address] [place] [address] Charlene Ambriz MD [address] [place] [address] 08/15/2023 12:20 PM EDT Office Visit Infectious Disease [facility] [place] [address] [place] [address] Dulce Velazquez MD [address] [place] [address] 08/22/2023 2:40 PM EDT Office Visit Gastroenterology, [facility] 132 [place] [address] James Fernandez MD 132 [facility] [place] [address] 08/24/2023 2:00 PM EDT [facility] [address] [place] [address] Petey Michel MD [address] [place] [address] Scheduled Procedures Name Priority Associated Diagnoses Date/Ti [...] D LEVEL ONCE IN A LIFETIME-USE SMARTSET# [id number] Completed 12/01/2022, 10/02/2020, 11/21/2018, Additional history exists [...] Documents on File Type Date Recorded Patient Concrete Puddler Expl anation Advance Directives and Living Will [...] the patient have Health Care Power of Retail Banker? No Full Code 06/25/2010 9:52 PM 06/26/2010 7:08 PM This or joel reflects the patients wishes and were consensually agreed upon. Question Answer Comments Discussion of Advance Directives occurred with: Not Discussed Does the patient have a Living Will? No Does the patient have Health Care Power of Retail Banker? No Full Code 07/11/2007 8:27 PM 07/12/2007 3:50 PM Full Code 07/11/2007 1:34 PM 07/11/2007 8:27 PM Care Teams Sole Rounder Relationship Specialty Start Date End Date Charlene Ambriz MD [address] [place] [address] PCP - General Internal Medicine 01/20/23 documented as of this encounter
--- OUTSIDE RECORDS SUMMARY | 2023-06-05 23:22 | External Medical Summary ---
Author Name Unknown Address Unknown Organization [id number]:[facility] [place] [address] [place] [address] Laboratory Report Ordering Provider Test Date Status ANNE-MARIE MAKI 06/01/2023 15:50:39 Final Observation Date Value Abnormality Reference (Units ) Status CRP, low-sensitivity 06/01/2023 15:50:39 8 Above high normal <=5 (mg/L) Final Performing Location [facility] - [address] [place] [address]
--- OUTSIDE RECORDS SUMMARY | 2023-06-05 23:22 | External Medical Summary ---
Author Name Unknown Address Unknown Organization [id number]:[facility] - [facility] [address] [facility] [place] [address] Laboratory Report Ordering Provider Test Date Status SUMMER IGLESIAS 05/19/2023 13:03:34 Final Observation Date Value Abnormality Reference (Units ) Status [place] light chains, Free, Serum 05/19/2023 13:03:34 20.91 Above high normal 3.30-19.40 (mg/L) Final L[place] light chains, free, Serum 05/19/2023 13:03:34 15.29 5.71-26.30 (mg/L) Final KAPPA LAMBDA FLC RATIO 05/19/2023 13:03:34 1.37 0.26-1.65 Final Performing Location LAB[facility]ORY [facility] - [facility] [place] [address]
--- OUTSIDE RECORDS SUMMARY | 2023-06-05 23:22 | External Medical Summary | Summary of Care ---
Author Name Unknown Organization [facility] Address [address] [place] [address] Phone [phone] Care Team Providers Care Revolving Inventory Clerk Name Role Phone Charlene Ambriz MD Primary Care Provide r Reason for Visit * Reason Comments Outpatient Testing Encounter Details Date Type Department Care Team (Late st Contact Info) Description 05/19/2023 1:00 PM EST Laboratory Laboratory, [facility] [address] [place] [phone] [facility], Lab [address] [place] [address] Multiple myeloma not having achieved remission (HCC); Hyperthyroidism Allergies Active Allergy Reactions Criticality Noted Date Comments Aspirin Other (Please comment) High 02/24/2022 Lorazepam Other (Please comment) 02/11/2021 "It made me weird" Hydrocodone Nausea/vomiting 03/01/2022 Iodine Hives High 02/24/2022 Ivp Dye 11/17/2006 Noted today at CAT Scan; per pt had only 1 hive each time Oxycodone Neuro complications (Please comment) 03/01/2022 Altered mental status documented as of this encounter (statuses as of 05/19/2023) Medications No known medicationsdocumented as of this encounter (statuses as of 05/19/2023) Active Problems Problem Noted Date Diagnosed Date Low weight 03/17/2023 Hyperparathyroidism, primary 03/17/2023 Nocturia 03/17/2023 Severe protein-energy malnutrition 03/02/2022 ADVANCE DIRECTIVE INFORMATION 09/11/2012 Overview: Yes, It is in her chart. Osteoporosis documented as of this encounter (statuses as of 05/19/2023) Resolved Problems Problem Noted Date Diagnosed Date [...] as of this encounter (statuses as of 05/19/2023) Immunizations Name Administration Dates Next Due COVID-19 [...] 2:00 PM EST Office Visit Palliative Medicine [facility], [place] [address] [place] [address] Vikki Luong MD [facility] [place] [address] 06/13/2023 1:30 PM EST Office Visit Urology, [place] [address] [place] [address] Soni Martínez MD [facility] [place] [address] 06/19/2023 3:30 PM EST Telemedicine Hematology Oncology [facility] [place] [address] [place] [address] Fiona Espinoza MD [address] [place], [place] [phone] 06/22/2023 3:00 PM EST Office Visit Neurology, [place] [address] [place] [address] Lorenzo Peters MD [address] [place] [address] 06/29/2023 11:00 AM EST Office Visit Wound Care, [address] [address] Catherine Alfaro, [facility] [address] [place] [address] 06/30/2023 1:30 PM EST Office Visit General Internal Medicine, [facility] [address] [place] [address] Charlene Ambriz MD [address] [place] [address] 08/15/2023 12:20 PM EDT Office Visit Infectious Disease [facility] [address] [place] [phone] Dulce Velazquez MD [address] [place] [address] 08/22/2023 2:40 PM EDT Office Visit Gastroenterology, [facility] [address] [address] James Fernandez MD [address] [place] [address] 08/24/2023 2:00 PM EDT Office Visit Ophthalmology, [place] [address] [place] [address] Petey Michel MD [address] [place] [address] Pending Results Name Type Priority Associated Diagnoses Date /Time CBC WITH WBC DIFFERENTIAL Lab STAT Multiple myeloma not having achieved remission (HCC) 05/19/2023 1:03 PM EST COMPREHENSIVE METABOLIC PANEL Lab STAT Multiple myeloma not having achieved remission (HCC) 05/19/2023 1:03 PM EST SERUM PROTEIN ELECTROPHORESIS REFLEX PROFILE Lab STAT Multiple myeloma not having achieved remission (HCC) 05/19/2023 1:03 PM EST SERUM FREE LIGHT CHAINS Lab STAT Multiple myeloma not having achieved remission (HCC) 05/19/2023 1:03 PM EST IMMUNOGLOBULIN QUANTITATIVE Lab STAT Multiple myeloma not having achieved remission (HCC) 05/19/2023 1:03 PM EST T4, FREE Lab Routine Hyperthyroidism 05/19/2023 1:03 PM EST TSH Lab Routine Hyperthyroidism 05/19/2023 1:03 PM EST CBC Lab STAT Multiple myeloma not having achieved remission (HCC) 05/19/2023 1:03 PM EST DIFFERENTIAL, AUTOMATED Lab STAT Multiple myeloma not having achieved remission (HCC) 05/19/2023 1:03 PM EST Scheduled Procedures Name Priority Associated [...] D LEVEL ONCE IN A LIFETIME-USE SMARTSET# [id number] Completed 12/01/2022, 10/02/2020, 11/21/2018, Additional history exists [...] as of this encounter Visit Diagnoses Diagnosis Multiple myeloma not having achieved remission (HCC) Multiple myeloma, without mention of having achieved remission Hyperthyroidism Thyrotoxicosis without mention of goiter or other cause, without mention of thyrotoxic crisis or storm documented in this encounter Advance Directives Documents on File Type Date Recorded Patient Benzol Operator Expl anation Advance Directives and Living Will [...] the patient have Health Care Power of Transactional Attorney? No Full Code 06/25/2010 9:52 PM 06/26/2010 7:08 PM This or joel reflects the patients wishes and were consensually agreed upon. Question Answer Comments Discussion of Advance Directives occurred with: Not Discussed Does the patient have a Living Will? No Does the patient have Health Care Power of Transactional Attorney? No Full Code 07/11/2007 8:27 PM 07/12/2007 3:50 PM Full Code 07/11/2007 1:34 PM 07/11/2007 8:27 PM Care Teams Revolving Inventory Clerk Relationship Specialty Start Date End Date Charlene Ambriz MD [address] [facility] [place] [address] PCP - General Internal Medicine 01/20/23 documented as of this encounter
--- OUTSIDE RECORDS SUMMARY | 2023-06-05 23:22 | External Medical Summary ---
Author Name Unknown Address Unknown Organization [id number]:[facility] [place] [address] [place] [address] Laboratory Report Ordering Provider Test Date Status ANNE-MARIE MAKI 06/01/2023 15:50:39 Final Observation Date Value Abnormality Reference (Units ) Status Complement C3c [Mass/volume] in Serum or Plasma 06/01/2023 15:50:39 121 90-180 (mg/dL) Final Performing Location [facility] - [address] [place] [address]
--- OUTSIDE RECORDS SUMMARY | 2023-06-05 23:22 | External Medical Summary ---
Author Name Unknown Address Unknown Organization [id number]:[facility] [place] [address] [place] [address] Laboratory Report Ordering Provider Test Date Status ANNE-MARIE MAKI 06/01/2023 15:50:39 Final Observation Date Value Abnormality Reference (Units ) Status C4 06/01/2023 15:50:39 10 10-40 (mg/ dL) Final Performing Location [facility] - [address] [place] [address]
--- OUTSIDE RECORDS SUMMARY | 2023-06-05 23:23 | External Medical Summary ---
Author Name Unknown Address Unknown Organization [id number]:[facility] - [address] [place] [address] Laboratory Report Ordering Provider Test Date Status SHANTHIANNE-MARIE 05/19/2023 13:03:34 Final Observation Date Value Abnormality Reference (Units ) Status T4, Free 05/19/2023 13:03:34 1.1 0.9-1.7 (n g/dL) Final Performing Location [facility] - [address] [place] [address]
--- OUTSIDE RECORDS SUMMARY | 2023-06-05 23:23 | External Medical Summary ---
Author Name Unknown Address Unknown Organization [id number]:LABORATORY [facility] - [address] [place] [address] Laboratory Report Ordering Provider Test Date Status SUMMER IGLESIAS 05/19/2023 13:03:34 Final Observation Date Value Abnormality Reference (Units ) Status WBC, Total 05/19/2023 13:03:34 2.53 Below low normal 4.00-10.80 (K/uL) Final RBC 05/19/2023 13:03:34 3.67 3.85-5.15 (M/uL) Final Hemoglobin 05/19/2023 13:03:34 12.1 12.0-15.3 (g/dL) Final HCT 05/19/2023 13:03:34 36.0 36.0-45.2 (%) Final MCV 05/19/2023 13:03:34 98.1 81.5-97.5 (fL) Final MCH 05/19/2023 13:03:34 33.0 27.0-34.0 (pg) Final MCHC 05/19/2023 13:03:34 33.6 32.0-36.0 (g/dL) Final RDW 05/19/2023 13:03:34 13.7 11.5-15.5 (%) Final Platelets 05/19/2023 13:03:34 175 140-400 (K/uL) Final MPV 05/19/2023 13:03:34 8.7 6.6-11.1 (fL) Final Nucleated erythrocytes/100 leukocytes [Ratio] in Blood by Automated count 05/19/2023 13:03:34 0 <=0 (/100 WBCs) Final Performing Location [facility] [place] [address]
--- OUTSIDE RECORDS SUMMARY | 2023-06-05 23:23 | External Medical Summary ---
Author Name Unknown Address Unknown Organization [id number]:[facility] - [address] [facility] [place] [address] Laboratory Report Ordering Provider Test Date Status SUMMER IGLESIAS 05/19/2023 13:03:34 Final Observation Date Value Abnormality Reference (Units ) Status BUN 05/19/2023 13:03:34 17 6-20 (mg/dL) Final Creatinine 05/19/2023 13:03:34 0.8 0.5-1.0 (mg/dL) Final Glomerular filtration rate/1.73 sq M.predicted [Volume Rate/Area] in Serum, Plasma or Blood by Creatinine-based formula (CKD-EPI) 05/19/2023 13:03:34 74 >=60 (mL/min) Final eGFR is calculated based on the CKD-EPI 2020 equation SODIUM 05/19/2023 13:03:34 135 135-146 (m mol/L) Final Potassium 05/19/2023 13:03:34 4.6 3.5-5.1 (m mol/L) Final Cl 05/19/2023 13:03:34 99 98-107 (mm ol/L) Final CO2 05/19/2023 13:03:34 23 22-32 (mmo l/L) Final Anion gap 05/19/2023 13:03:34 13 7-15 (mmol /L) Final Glucose 05/19/2023 13:03:34 108 70-120 (mg /dL) Final Albumin 05/19/2023 13:03:34 4.9 3.8-5.0 (g /dL) Final AST (Aspartate aminotransferase) 05/19/2023 13:03:34 28 10-35 (U/L) Fin al Alk Phos 05/19/2023 13:03:34 66 35-130 (U/ L) Final Bilirubin, Total 05/19/2023 13:03:34 0.5 <=1 .2 (mg/dL) Final Calcium 05/19/2023 13:03:34 10.1 8.4-10.2 ( mg/dL) Final Protein 05/19/2023 13:03:34 8.3 6.0-8.3 (g /dL) Final ALT (Alanine aminotransferase) 05/19/2023 13:03:34 9 Below low normal 10-35 (U/L) Final Performing Location LABORATORY [facility] - [facility] [place] [address]
--- OUTSIDE RECORDS SUMMARY | 2023-06-05 23:23 | External Medical Summary ---
Author Name Unknown Address Unknown Organization K01:[facility] [place] [facility] [address] [facility] [address] [facility] [address] Laboratory Report Ordering Provider Test Date Status SUMMER IGLESIAS 05/19/2023 13:03:34 Final Observation Date Value Abnormality Reference (Units) Status PARAPROTEIN NORMAL/ABNORMAL 13:03:34 Abnormal Abnormal Normal Final Protein 13:03:34 7.9 6.0-8.3 (g/dL) Final Albumin/Protein.total [Pure mass fraction] in Serum or Plasma by Electrophoresis 13:03:34 4.14 3.30-4.40 (g/dL) Final Alpha 1 globulin/Protein.tota l [Pure mass fraction] in Serum or Plasma by Electrophoresis 13:03:34 0.33 Above high normal 0.10-0.30 (g/dL) Final Alpha 2 globulin/Protein.tota l [Pure mass fraction] in Serum or Plasma by Electrophoresis 13:03:34 1.01 Above high normal 0.60-1.00 (g/dL) Final Beta globulin/Protein.tota l [Pure mass fraction] in Serum or Plasma by Electrophoresis 13:03:34 0.97 0.80-1.30 (g/dL) Final Gamma globulin/Protein.tota l [Pure mass fraction] in Serum or Plasma by Electrophoresis 13:03:34 1.46 0.70-1.70 (g/dL) Final Protein Fractions [Interpretation] in Serum or Plasma by Electrophoresis Narrative 13:03:34 Abnormal. 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 Paraprotein concentration is detectable, but less than 0.5 g/dL, unable to be accurately quantified by this method. Final Performing Location [facility] [place] [address] [facility] [id number]
[2023-06-06] MEDS ORDERED: diazePAM 5 MG TABLET PO PRN ×3 (00:12→16:08)
[2023-06-06] MEDS: ACETAMINOPHEN 500 MG TAB PO PRN ×3 (00:42→21:33)
[2023-06-06] MEDS ORDERED: HYDROmorphone INJ 0.5 MG/0.5 ML SYR IV ONE (04:13)
--- NOTE | 2023-06-06 06:28 | Electrocardiogram Report ---
Test Reason : Blood Pressure : / mmHG Vent. Rate : 089 BPM Atrial Rate : 089 BPM P-R Int : 126 ms QRS Dur : 062 ms QT Int : 344 ms P-R-T Axes : 084 025 031 degrees QTc Int : 418 ms Sinus rhythm Right atrial enlargement Nonspecific ST abnormality When compared with ECG of 19-JAN-2022 16:02, Premature atrial complexes are no longer Present Confirmed by Sotero Guthrie ([id number]) on 06/06/2023 6:27:58 AM Referred By: Confirmed By:Sotero Guthrie
--- NOTE | 2023-06-06 07:15 | Communication Note ---
Date of Service: June 06, 2023 Dr. Greene ([facility] sales promotion coordinator) notified me of patient request to transfer care from [facility] to [facility] service. Patient currently has [address] Yu of [facility] [address]. Ambriz of [facility] Transfer service to Dr. Contreras.
--- NOTE | 2023-06-06 07:19 | Billing Data ---
Date of Service June 05, 2023 Coding Level of Care Code 49086 INT INP/OBS CARE
[2023-06-06 08:08] LABS: Hematocrit (blood only) 22.7 % (37.0-47.0); Hemoglobin 7.2 g/dl (12.0-16.0); Mean Corpuscular Hemoglobin 32.3 pg (25.0-34.0); Mean Corpuscular Hgb Conc 31.7 g/dL (32.0-36.0); Mean Corpuscular Volume 101.8 fL (80.0-100.0); Mean Platelet Volume 9.1 fL (9.4-12.4); Platelet Count 124 K/uL (130-400); RDW Coefficient of Variation 15.9 % (11.5-14.5); Red Blood Count 2.23 M/uL (4.20-5.40); White Blood Count 1.55 K/ul (4.8-10.8)
[2023-06-06 08:21] LABS: Albumin Level 3.6 gm/dl (3.4-5.0); Bilirubin,Total 0.6 mg/dl (0.2-1.0); Calcium 9.1 mg/dl (8.6-10.3); Potassium 4.4 mmol/L (3.5-5.1)
[2023-06-06 08:27] LABS: Albumin Globulin Ratio 1.2 (0.9-2); BUN Creatinine Ratio 35.1 (10-20); C Reactive Protein 1.43 mg/dl (0-0.5); Creatinine Clr Calc Pharmacy 41.2 ml/min; Est GFR (African American) 86.9 ml/min; Total Protein 6.6 gm/dl (6.0-8.3)
[2023-06-06 08:40] LABS: Thyroid Stimulating Hormone 0.913 uIu/ml (0.300-4.500)
[2023-06-06 08:46] LABS: Ferritin 58.4 ng/ml (8-388)
[2023-06-06 08:48] LABS: Folate (Folic Acid),Ser orPlas 8.13 ng/ml (>5.38)
[2023-06-06 08:49] LABS: Polychromasia 1+
[2023-06-06 08:51] LABS: Basophils # (auto) 0.01 K/uL (0.00-0.20); Basophils % (auto) 0.6 %; Eosinophils # (auto) 0.02 K/uL (0.00-0.50); Eosinophils % (auto) 1.3 %; Lymphocytes # (auto) 0.76 K/uL (1.20-3.40); Monocytes # (auto) 0.16 K/uL (0.11-0.59); Monocytes % (auto) 10.3 %; Neutrophils % (auto) 38.8 %
[2023-06-06 08:52] LABS: INR 1.1 (0.9-1.1); Partial Thromboplastin Ratio 0.9; Partial Thromboplastin Time 25 Seconds (21-31); Prothrombin Time 11.9 Seconds (9.0-12.0)
--- NOTE | 2023-06-06 11:32 | XCELERA ---
[id number] \\[id number]
--- NOTE | 2023-06-06 15:44 | Oncology Consultation ---
Date of Consultation June 06, 2023 Assessment & Plan (1) Pancytopenia: I had a very lengthy discussion with the patient and her [id number]. Explained to the patient that prior bone marrow biopsy from 2021 and the fact that she has a TET 2 mutation and that bone marrow biopsy makes me highly likely to consider an underlying bone marrow failure syndrome such as myelodysplastic syndrome. I have recommended a bone marrow biopsy for her however the patient wants to talk to her brother as well as the rest of her previous docs including doctors in [facility] before making such a decision. I went over the potential risks associated with a bone marrow biopsy procedure. The patient understood my recommendations. She was given literature regarding myelodysplastic syndrome as well as her latest CBC. Plan Thank you for this interesting hematological consult, hematology will continue to follow the patient and make appropriate recommendations History of Present Illness Attending Physician: Emily Contreras MD History of Present Illness The patient is a very pleasant 78-year-old woman with a past history of MGUS, who had a bone marrow biopsy in 2021 which did not reveal significant plasma cell neoplasm however had a TET2 mutation. She has been admitted to the hospital with recurrent syncope, feeling tired. During her admission here her hemoglobin has been between 7 to 9 g/dL. Her latest hemoglobin was 7.2. This is predominantly microcytic anemia. She has become rapidly anemic from April 2023 but her hemoglobin was 11.5. She is also neutropenic with a WBC count of 1.55 and an absolute neutrophil count of 0.60. She had a thorough pancytopenia workup performed including TSH level which was normal, folic acid level, vitamin B12 level. She does not have folate/vitamin B12 deficiency iron indicis were performed which revealed largely normal stores. She does not have active bleeding. She does have ecchymosis in bilateral lower extremities. Allergies Allergy/AdvReac Type Severity Reaction Status Date / Time Iodinated Contrast Media Allergy Intermediate Hives Verified 05/10/23 13:24 azithromycin Allergy Rash Verified 06/02/23 10:18 clindamycin Allergy Rash Verified 06/02/23 10:18 mirabegron [From Myrbetriq] AdvReac Severe hallucinati Verified 05/10/23 13:24 ons amoxicillin AdvReac Intermediate Rash Verified 05/18/23 10:40 aspirin [From Percodan] AdvReac Intermediate constipatio Verified 05/10/23 13:24 n hydrocodone [From Vicodin] AdvReac Intermediate Nausea Verified 05/10/23 13:24 lorazepam AdvReac Intermediate "make me Verified 05/10/23 13:24 weird" oxycodone [From Percocet] AdvReac Intermediate constipatio Verified 05/10/23 13:24 n lactose AdvReac Verified 06/06/23 15:59 Amoxicillin Allergy Intermediate Rash Uncoded 05/18/23 11:04 erythromycin Allergy Rash Uncoded 06/02/23 10:18 Home Medications Medication Instructions Recorded Confirmed Type diazepam 5 mg tablet See Rx Instructions PO HS PRN 05/31/23 06/05/23 Rx muscle spasm #60 tabs Patient History Medical History Abnormal CT scan, kidney Coronary atherosclerosis Elevated CK Hiatal hernia Hyperparathyroidism Hypothyroidism Microscopic hematuria Mitral valve prolapse Multiple lacunar infarcts Multiple pulmonary nodules Myalgia Nocturia Osteoporosis, post-menopausal Plasma cell dyscrasia Protein calorie malnutrition Right cervical radiculopathy Right sided weakness Vertigo Surgical History H/O breast biopsy H/O colonoscopy H/O dilation and curettage H/O oophorectomy History of bone marrow biopsy History of esophagogastroduodenoscopy (EGD) S/P tubal ligation Family History Mother Heart disease Diabetes Myocardial infarction Pancreatic cancer Father CHF (congestive heart failure) Kidney disease Bladder cancer Myocardial infarction Grandfather Myocardial infarction Social History Smoking Status: Never smoker Second Hand Exposure: No; Do You Dip or Chew Tobacco: No; Hx Alcohol Use: No Hx Substance Use: No Preferred Language: Algerian Communication Ability: Effective Visual Impairment: No Limitations Pickling Machine Operator Required: No Beliefs That Will Affect Care: None Current Living Situation: Alone Other Information That Helps Us Care for You: No Feels Safe at Home: Yes Safety Concerns: Feels Safe At This Time Assistive Devices: None Results & Data Vital Signs (Past 12 Hours) Vital Signs Temp Pulse Pulse Resp BP Pulse Ox O2 Del Method 06/06/23 12:29 36.9 C 86 17 113/69 94 Room Air 06/06/23 07:53 36.6 C 81 18 131/71 99 Room Air 06/06/23 07:37 90
--- NOTE | 2023-06-06 15:51 | Hospitalist Progress Note ---
Date of Service June 06, 2023 Assessment & Plan (1) Petechial rash: (2) Ambulatory dysfunction: (3) LOC (loss of consciousness): (4) Pulmonary HTN: (5) Emphysema of lung: Plan Pt is 78yoF with a complex PMHx that includes MGUS, Hyperparathyroidism, Osteoporosis with subsequent Hx of compression fracture of the spine s/p kyphoplasty with Dr Nelson, mood disorder, Aspergers (per pt), chronic malnutrition, neuropathic pain, chronic Pain Syndrome, nocturia presenting with concern for lower extremity petechial rash, bruising and pain that she states has been limiting her ability to walk, as well as episodes of LOC. Petechial Skin changes Bruising Pain, bilateral lower extremities Ambulatory dysfunction Per pt, skin changes, bruising and pain started after taking amoxicillin on 04/19/23 prescribed by her dentist. 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 In particular had a Flexitest done which showed that she was positive for an "TRACE IFA" screen Venous Doppler has been ordered for bilateral lower extremities with no sign of DVT Heme/onc consult placed for further recs- appreciated Rheumatology consult placed for further recs- appreciated PT/OT ordered for ambulatory dysfunction, appreciate recs Pt follows with numerous specialists at [facility] For further continuity of care in setting of complex medical history, consider transfer to [facility] for further evaluation. LOC Syncope Pt describes episodes where she loses consciousness, mostly unwitnessed CT head with no acute abnormality MRI brain pending Echo showing EF 65-70%, no wall motion abnormalities, mild LVH, moderate tricuspid regurg and moderate pulmonary HTN Orthostatics showed an increase in BP from lying to standing. However there was an almost 30 point increase in HR, ?POTS BUN/Cr ratio elevated at 35, started on IV fluids Monitor on telemetry Seizure and fall precautions Emphysema Moderate pulmonary HTN Chest XRAY noting hyperexpanded lungs, emphysema Echo as noted above with moderate pulmonary HTN Pulmonary consult placed for further recommendations Vitamin D Deficiency Vit D level of 9.4 on admission Started on supplementation with PO D2 50, 000U qweekly x 6-8 weeks PCP followup Elevated troponin hs-Troponin elevated at 27.6 on admission, downtrended to 21.3 EKG with NSR Echo as noted above showing EF 65-70%, no wall motion abnormalities, mild LVH, moderate tricuspid regurg and moderate pulmonary HTN Doubt ACS, consider cardiology follow up if pt symptomatic Chronic Malnutrition [place] consult placed. Mood Disorder Insomnia Chronic Pain Syndrome Per pt she takes nightly Valium to help with both insomnia AND PAIN, states she was told it was "one stop shopping" States that she would like her Valium to be available at night along with her tylenol Pt states she has 2 pcps, per PDMP Valium prescribed by [facility] PCP Dr. Yu. Last prescribed and filled on 05/31. Per Dr Yu, prescribed as diazepam 5mg qhs prn (1-2 pills), pt given 60 pills. Valium ordered 5mg qhs SCHEDULED with additional 5mg dose prn if pt requests second dose to limit risk of delirium given pt's age and new hospital setting. Delirium precautions. Frequent reorientation, avoid sedating medications Continue Tylenol 1000mg q8h ordered prn MGUS Pancytopenia Pt has had bone marrow biopsies x2 Follows with [facility] Hematology and states she has been diagnosed with MGUS. Hyperparathyroidism-stable Osteoporosis, Hx of compression fracture- stable Nocturia- follows with urology, stable DVT prophylaxis: will defer in setting of thrombocytopenia Diet: CODE STATUS: DNR/DNI Dispo: PT/OT ordered in setting of ambulatory dysfunction, appreciate further recs for dispo Admission and Anticipated Discharge Date Admission Date: June 05, 2023 Subjective Extensive discussion with pt this morning. States that her brother in on the [facility] board and that she follows with multiple providers at [facility], with many being the chiefs or chairs of their departments. States that she has been on no medications from 2021 until her dentist asked her to take amoxicillin on Apr 19, 2023. Since then she states she has noticed a petechial rash and bruising on her lower extremities.States has been limiting ability to ambulate. Has also been having episodes of LOC, mostly unwitnessed. Review of Systems Review of Systems: All systems reviewed & are unremarkable except as noted in Subjective Physical Exam Physical Exam: General: Alert, oriented. No acute distress Skin: petechiae and bruising noted on lower extremities bilaterally Psych: Appropriate mood and affect Neuro: No gross deficits while sitting in bed HEENT: NC/AT Chest: Nontender to palpation. CV: RRR Resp: Breath sounds clear bilaterally, no increased effort of breathing. Abdomen: Soft Extremities: No edema in lower extremities bilaterally. Results & Data Results & Data Vital Signs (Past 12 Hours) Vital Signs Temp Pulse Pulse Resp BP Pulse Ox O2 Del Method 06/06/23 12:29 36.9 C 86 17 113/69 94 Room Air 06/06/23 07:53 36.6 C 81 18 131/71 99 Room Air 06/06/23 07:37 90
[2023-06-06] MEDS ORDERED: ERGOCALCIFEROL 50,000 UNITS 1250 MCG CAP PO SCH (18:00)
--- NOTE | 2023-06-06 18:25 | Rheumatology Consultation ---
Rheumatology Consultation DOS June 06, 2023 Requesting Physician Emily Contreras MD Reason for Consultation Concern for vasculitis Assessment & Plan (1) Petechiae: Patient recalls developing rash following administration of amoxicillin. However, she has had persistent skin lesions despite doses on 04/19 and 04/22 which argues for a separate process contributing to the ongoing skin lesions Her proteinuria is noted No history of hemoptysis, but with proteinuria and skin rash, consider CT of chest to evaluate for any underlying parenchymal changes Could be related to her underlying bone marrow process and wait input from hematology regarding next steps If etiology remains elusive, i.e. not related to her bone marrow process, then I recommend pursuing biopsy for further evaluation The ecchymotic areas posterior as well as anterior lateral on the right do not look like a classic livedo process I also recommend checking cryoglobulins with next blood draw (2) Vitamin D deficiency: Vitamin D quite low and recommend replacing with 50,000 units of ergocalciferol weekly (3) Abnormal CBC: Previously evaluated and following with hematology. Appreciate assistance with hematology here with current evaluation Patient notes that bone marrow biopsy is recommended and will be pursued (4) Proteinuria: Urinalysis shows 4+ protein This could be coming from her underlying bone marrow process, but if this is ruled out (no myeloma, no Bence-Crisostomo proteins) recommend investigating for other etiologies I recommend checking cryoglobulins with next blood draw Proteinuria type: unspecified Qualified Code(s): R80.9 - P roteinuria, unspecified Plan Replace vitamin D Determine etiology of proteinuria If current rash is not sequelae of underlying bone marrow process, recommend biopsy Consider CT of chest to further evaluate other potential organ involvement from a vasculitic process History of Present Illness Requesting Physician: Emily Contreras MD Attending Physician: Emily Contreras MD History of Present Illness This patient presents for evaluation of rash on her lower extremities. She recalls being in her usual state of health until 04/19/2023 when she took 1 dose of amoxicillin prior to her dental procedure. After this 1 dose, she had difficulty with stiffness throughout her body. She proceeded with dental procedure and then took 1 additional dose of amoxicillin on 04/22. On 04/24, she notes having difficulty with a black discoloration on her feet and difficulty walking on her feet secondary to pain. She had swelling of her ankles. She began seeing petechiae in her lower extremities but then the rash progressed to involve other areas including her abdomen, lips, and face. She had difficulty standing on her feet secondary to discomfort as well as muscle pain. She also had sensation navigating her house as if she would pass out and she notes sensation as "the lights were going out." She presented to the hospital secondary to ongoing difficulty with the rash and difficulty ambulating around her house secondary to discomfort. She has had a bit of a dry cough but denies hemoptysis. She denies obvious fevers or chills but has felt warm at night. Denies joint swelling. Denies antecedent illness prior to the onset of the symptoms. Other than 2 doses of amoxicillin (04/19/2023 and 04/22/2023) she denies any additional new medications. Previously, she had blood work through her PCP which revealed negative C ANCA and P ANCA as well as CRP of 8 (5). C4 of 10 and C3 of 121 was identified. She also had lower extremity arterial Doppler studies which showed no evidence of stenotic lesions. In the past, she has had elevated CK and initially, there were concerns regarding need for biopsy. This was never pursued. There is documentation of EMG that was unremarkable. She has been seen by neurology at [facility]. Allergies Allergy/AdvReac Type Severity Reaction Status Date / Time Iodinated Contrast Media Allergy Intermediate Hives Verified 05/10/23 13:24 azithromycin Allergy Rash Verified 06/02/23 10:18 clindamycin Allergy Rash Verified 06/02/23 10:18 mirabegron [From Myrbetriq] AdvReac Severe hallucinati Verified 05/10/23 13:24 ons amoxicillin AdvReac Intermediate Rash Verified 05/18/23 10:40 aspirin [From Percodan] AdvReac Intermediate constipatio Verified 05/10/23 13:24 n hydrocodone [From Vicodin] AdvReac Intermediate Nausea Verified 05/10/23 13:24 lorazepam AdvReac Intermediate "make me Verified 05/10/23 13:24 weird" oxycodone [From Percocet] AdvReac Intermediate constipatio Verified 05/10/23 13:24 n lactose AdvReac Verified 06/06/23 15:59 Amoxicillin Allergy Intermediate Rash Uncoded 05/18/23 11:04 erythromycin Allergy Rash Uncoded 06/02/23 10:18 Home Medications Medication Instructions Recorded Confirmed Type diazepam 5 mg tablet See Rx Instructions PO HS PRN 05/31/23 06/05/23 Rx muscle spasm #60 tabs Patient History Medical History Abnormal CT scan, kidney Coronary atherosclerosis Elevated CK Hiatal hernia Hyperparathyroidism Hypothyroidism Microscopic hematuria Mitral valve prolapse Multiple lacunar infarcts Multiple pulmonary nodules Myalgia Nocturia Osteoporosis, post-menopausal Plasma cell dyscrasia Protein calorie malnutrition Right cervical radiculopathy Right sided weakness Vertigo Surgical History H/O breast biopsy H/O colonoscopy H/O dilation and curettage H/O oophorectomy History of bone marrow biopsy History of esophagogastroduodenoscopy (EGD) S/P tubal ligation Family History Mother Heart disease Diabetes Myocardial infarction Pancreatic cancer Father CHF (congestive heart failure) Kidney disease Bladder cancer Myocardial infarction Grandfather Myocardial infarction Social History Smoking Status: Never smoker Second Hand Exposure: No; Do You Dip or Chew Tobacco: No; Hx Alcohol Use: No Hx Substance Use: No Preferred Language: Korean Communication Ability: Effective Visual Impairment: No Limitations Court Bailiff Required: No Beliefs That Will Affect Care: None Current Living Situation: Alone Other Information That Helps Us Care for You: No Feels Safe at Home: Yes Safety Concerns: Feels Safe At This Time Assistive Devices: None Review of Systems Review of Systems: She has felt hot at nighttime but denies obvious fevers and night sweats. Denies chest pain or shortness of breath. Occasional nausea. Occasional constipation. She denies dark or black stools. She lost 40 pounds 10 years ago and has had difficulty putting it back on. Physical Exam Physical Exam: General: Alert and oriented. No acute distress Eyes: Pupils are equal. Extraocular muscles intact. Mouth: No oral sores Neck: Supple, no adenopathy Cardiovascular: Heart regular, no rubs Pulmonary: Clear to auscultation bilaterally Abdomen: Soft, nontender. Positive bowel sounds. Extremities: Difficult to palpate distal pulse right lower extremity. Subtle edema right ankle compared to left. Skin: Petechial type lesions bilateral lower extremities from thigh distally. There is dark discoloration within the toenails of the bilateral great toes. Do not identify lesions at plantar aspect of feet. Ecchymotic area right anterior medial lower leg as well as posterior legs. I do not identify livedo appearance and no reticular type appearance to the ecchymotic region Musculoskeletal: No synovitis. No effusions. Results & Data Vital Signs (Past 12 Hours) Vital Signs Temp Pulse Pulse Resp BP Pulse Ox O2 Del Method 06/06/23 16:52 79 06/06/23 15:50 36.3 C L 78 18 107/63 98 Room Air 06/06/23 12:29 36.9 C 86 17 113/69 94 Room Air 06/06/23 07:53 36.6 C 81 18 131/71 99 Room Air 06/06/23 07:37 90 Laboratory Results C ANCA and P ANCA negative, 06/01/2023, [facility] Results Rheum Results - Vit D (25-OH Vit D): 25-OH Vitamin D Total 9.4 ng/ml (30-100) L 06/06/23 07:25 Results Rheum Results - DMARD: RBC 2.23 M/uL (4.20-5.40) L 06/06/23 07:25 WBC 1.55 K/ul (4.8-10.8) L 06/06/23 07:25 Hgb 7.2 g/dl (12.0-16.0) L 06/06/23 07:25 Hct 22.7 % (37.0-47.0) L 06/06/23 07:25 MCV 101.8 fL (80.0-100.0) H 06/06/23 07:25 MCH 32.3 pg (25.0-34.0) 06/06/23 07:25 MCHC 31.7 g/dL (32.0-36.0) L 06/06/23 07:25 RDW Std Deviation 59.0 fL (36.4-46.3) H 06/06/23 07:25 RDW Coeff of Carl 15.9 % (11.5-14.5) H 06/06/23 07:25 Plt Count 124 K/uL (130-400) L 06/06/23 07:25 MPV 9.1 fL (9.4-12.4) L 06/06/23 07:25 Neut % (Auto) 38.8 % 06/06/23 07:25 Lymph % (Auto) 49.0 % 06/06/23 07:25 [place] # (Auto) 0.16 K/uL (0.11-0.59) 06/06/23 07:25 Eos # (Auto) 0.02 K/uL (0.00-0.50) 06/06/23 07:25 Immature Gran % (Auto) 0.0 % 06/06/23 07:25 Neut # (Auto) 0.60 K/uL (1.40-6.50) L* 06/06/23 07:25 Lymph # (Auto) 0.76 K/uL (1.20-3.40) L 06/06/23 07:25 [place] # (Auto) 0.16 K/uL (0.11-0.59) 06/06/23 07:25 Eos # (Auto) 0.02 K/uL (0.00-0.50) 06/06/23 07:25 Baso # (Auto) 0.01 K/uL (0.00-0.20) 06/06/23 07:25 Immature Gran # (Auto) 0.00 K/uL (0.01-0.20) L 06/06/23 07:25 Polychromasia 1+ 06/06/23 07:25 Sodium 136 mmol/L (136-145) 06/06/23 07:25 Potassium 4.4 mmol/L (3.5-5.1) 06/06/23 07:25 Chloride 105 mmol/L (98-107) 06/06/23 07:25 Carbon Dioxide 25 mmol/L (21-32) 06/06/23 07:25 Anion Gap 6 (3-11) 06/06/23 07:25 BUN 27 mg/dl (6-23) H 06/06/23 07:25 Creatinine 0.77 mg/dl (0.6-1.2) 06/06/23 07:25 Est GFR ( Amer) 86.9 ml/min 06/06/23 07:25 Est GFR (Non-Af Amer) 75.0 ml/min 06/06/23 07:25 BUN/Creatinine Ratio 35.1 (10-20) H 06/06/23 07:25 Glucose 91 mg/dl (70-99(Fasting)) 06/06/23 07:25 Calcium 9.1 mg/dl (8.6-10.3) 06/06/23 07:25 Total Bilirubin 0.6 mg/dl (0.2-1.0) 06/06/23 07:25 AST 17 U/L (13-39) 06/06/23 07:25 ALT 9 U/L (7-52) 06/06/23 07:25 Alkaline Phosphatase 55 U/L (34-104) 06/06/23 07:25 Total Protein 6.6 gm/dl (6.0-8.3) 06/06/23 07:25 Albumin 3.6 gm/dl (3.4-5.0) 06/06/23 07:25 Globulin 3.0 gm/dl (2.5-4.0) 06/06/23 07:25 Albumin/Globulin Ratio 1.2 (0.9-2) 06/06/23 07:25 ESR 15 mm/hr (0-30) 06/06/23 07:25 C-Reactive Protein 1.43 mg/dl (0-0.5) H 06/06/23 07:25 Results Urinalysis: Urine Color Yellow 06/09/22 Urine Appearance Clear 06/09/22 Urine pH 6.0 (4.5-7.5) 06/09/22 Ur Specific Ideal 1.018 (1.000-1.030) 06/09/22 Urine Protein 4+ 06/09/22 Urine Glucose (UA) Negative 06/09/22 Urine Ketones Negative 06/09/22 Urine Blood Negative 06/09/22 Urine Nitrite Negative 06/09/22 Urine Bilirubin Negative 06/09/22 Urine Urobilinogen Negative 06/09/22 Ur Leukocyte Esterase Negative 06/09/22 Urine WBC (Auto) 1-5 06/09/22 Urine RBC (Auto) 5-10 06/09/22 Urine Hyaline Casts (Auto) 0 /lpf (0-5) 02/01/22 Urine Epithelial Cells (Auto) 5-10 /lpf (0-5) H 02/01/22 Urine Bacteria (Auto) Negative (Negative) 02/01/22 Urine Culture: No Data to Display PG Care Time/CCT Total # of Minutes Spent Total Time Spent with Patient: Total time spent is greater than 50% in coordination of care (as documented) at patient's floor/unit and/or counseling patient:70 Coding Level of Care Code 55317 INT INP/OBS CARE 2/55MIN Diagnoses Petechiae R23.3 Vitamin D deficiency E55.9 Abnormal CBC R79.89 Proteinuria, unspecified type R80.9 Proteinuria type: unspecified
[2023-06-06] MEDS ORDERED: GADOBUTROL 65ML VIAL IV ONE (19:04)
--- NOTE | 2023-06-06 20:41 | Magnetic Resonance Report ---
Exam(s): MRI HEAD W/WO Contrast IV Amt: 4.5cc gadavist EXAM: MR Head Without and With Intravenous Contrast CLINICAL HISTORY: Reason for exam: loss of consciousness. TECHNIQUE: Magnetic resonance images of the head/brain without and with intravenous contrast in multiple planes. Mild to moderate motion artifact. CONTRAST: Patient received 4.5cc Gadavist of IV contrast COMPARISON: Head CT 06/05/23. FINDINGS: Brain: No mass effect or acute infarct. No acute hemorrhage. Mild atrophy and chronic white matter disease. No abnormal enhancement or other areas of abnormal signal in the brain parenchyma. Ventricles: No hydrocephalus or midline shift. Bones/joints: No acute bony lesion. Soft tissues: No scalp hematoma. Sinuses: Clear. Mastoid air cells: No mastoid effusion. IMPRESSION: 1. Mild age-related findings. 2. No abnormal enhancement, acute infarct, bleed, or acute intracranial abnormality. Electronically signed by: Zora Sumner M.D. 06/06/23 20:40 PM
[2023-06-06] MEDS: SODIUM CHLORIDE 0.9% 1,000 ML IV SCH (21:32)
[2023-06-06] MEDS: diazePAM 5 MG TABLET PO SCH ×2 (21:34→22:21)
[2023-06-06] MEDS ORDERED: POLYETHYLENE (MIRALAX) 17 GM PACK PO PRN (22:36)
[2023-06-07] MEDS: ACETAMINOPHEN 500 MG TAB PO PRN (06:48)
[2023-06-07 08:48] LABS: Hematocrit (blood only) 25.7 % (37.0-47.0); Hemoglobin 8.3 g/dl (12.0-16.0); Mean Corpuscular Hemoglobin 32.7 pg (25.0-34.0); Mean Corpuscular Hgb Conc 32.3 g/dL (32.0-36.0); Mean Corpuscular Volume 101.2 fL (80.0-100.0); Mean Platelet Volume 8.9 fL (9.4-12.4); Platelet Count 126 K/uL (130-400); RDW Coefficient of Variation 15.9 % (11.5-14.5); RDW Standard Deviation 58.6 fL (36.4-46.3); Red Blood Count 2.54 M/uL (4.20-5.40); White Blood Count 1.64 K/ul (4.8-10.8)
--- NOTE | 2023-06-07 09:16 | Pulmonary Consultation ---
Date of Consultation June 07, 2023 Assessment & Plan (1) Abnormal echocardiogram: Echo this admission revealed an elevated right ventricular systolic pressure of 52 mmHg. Patient denies any symptoms of pulmonary hypertension including shortness of breath with exertion, chronic lower extremity edema or abdominal swelling. She does not have any evidence of JVD or hypoxemia. Given the lack of signs or symptoms, no further workup is required at this time. Should the patient have ongoing syncopal events, right heart catheterization can be pursued to get an accurate measure of her pulmonary wedge pressure, mean pulmonary artery pressures and calculate her pulmonary vascular resistance. The elevated pulmonary pressures seen may be due to multifactorial reasons including mild concentric LVH, occult obstructive lung disease and chronic high output cardiac dysfunction related to severe anemia. Again, she is asymptomatic. Other etiologies include a mixed connective tissue disorder such as scleroderma. If she ultimately becomes symptomatic and is identified as having true pulmonary arterial hypertension, she would need a more extensive workup including serologies to look for a mixed connective tissue disorder, ultrasound of her liver, CT chest with PE protocol/VQ scan, HIV testing, polysomnography and PFTs. I reviewed the non-contrast CT chest from today. The patient does not have emphysema. (2) Abnormal CBC: She is going to follow-up with hematology and oncology. She is being worked up for a possible myelodysplastic syndrome. History of Present Illness Reason for Consultation: "Emphysema, mod pulm hypertension" Attending Physician: Emily Contreras MD History of Present Illness 78-year-old female who has a past medical history of hyperparathyroidism hiatal hernia, vitamin D deficiency and osteoporosis who presented to the hospital 06/05/2023. She had a dental procedure in April and after taking amoxicillin for the dental procedure she developed a rash and dizziness. She reportedly had a syncopal episode at home which she relates was secondary to pain. Patient also notably has chronic insomnia and takes Valium nightly. She does endorse shortness of breath with exertion. She had an echo 06/06/2023 which revealed an EF of 65 to 70%. Estimated RVSP was elevated to 52 mmHg. She has no prior right heart catheterization. Syncopal workup has largely been unrevealing. Noncontrast CT chest personally reviewed performed today. There is biapical fibrosis noted. Hyperexpanded lung smith. No overt emphysema seen. Increased interlobular septal thickening at the bases bilaterally, right greater than left. Small nodule noted at the right lower lobe in the lateral aspect. No significant lymphadenopathy seen. Patient notes that she follows with a financial administrator and a food analyst at [place]. She denies any history of shortness of breath, cough or chest pain. She denies any history of lower extremity edema aside for coinciding with her recent rash. She is a lifelong non-smoker. 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 She frequently rides horses and works with many animals including horses, cats and dogs. She notes that she has Asperger's and easily gets overstimulated and overwhelmed with hospitalizations and doctor visits. She is frustrated with her pancytopenia and that there is not a definitive diagnosis. Allergies Allergy/AdvReac Type Severity Reaction Status Date / Time Iodinated Contrast Media Allergy Intermediate Hives Verified 05/10/23 13:24 azithromycin Allergy Rash Verified 06/02/23 10:18 clindamycin Allergy Rash Verified 06/02/23 10:18 mirabegron [From Myrbetriq] AdvReac Severe hallucinati Verified 05/10/23 13:24 ons amoxicillin AdvReac Intermediate Rash Verified 05/18/23 10:40 aspirin [From Percodan] AdvReac Intermediate constipatio Verified 05/10/23 13:24 n hydrocodone [From Vicodin] AdvReac Intermediate Nausea Verified 05/10/23 13:24 lorazepam AdvReac Intermediate "make me Verified 05/10/23 13:24 weird" oxycodone [From Percocet] AdvReac Intermediate constipatio Verified 05/10/23 13:24 n lactose AdvReac Verified 06/06/23 15:59 Amoxicillin Allergy Intermediate Rash Uncoded 05/18/23 11:04 erythromycin Allergy Rash Uncoded 06/02/23 10:18 Home Medications Medication Instructions Recorded Confirmed Type diazepam 5 mg tablet See Rx Instructions PO HS PRN 05/31/23 06/05/23 Rx muscle spasm #60 tabs ergocalciferol (vitamin D2) 1,250 50,000 unit PO Q7D #7 caps 06/07/23 Rx mcg (50,000 unit) capsule Patient History Medical History (Updated 06/07/23 @ 11:59 by Hasmukh Barkley MD) Abnormal echocardiogram Nocturia Protein calorie malnutrition Abnormal CT scan, kidney Plasma cell dyscrasia MGUS Mitral valve prolapse Mild mitral valve prolapse, Mild MR per 01/2021 echo Elevated CK Following with [facility] neurosurgery- planning for future muscle biopsy (not done yet) Multiple lacunar infarcts Myalgia Seen by [facility] neurosurgery (12/23/21) for evaluation of myalgias, headache, eye pressure and facial discomfort for muscle biopsy- has not been completed yet Right sided weakness Right cervical radiculopathy Vertigo Coronary atherosclerosis Possible/noted on CT > evaluated by cardio, unremarkable echo performed- did not feel stress testing or coronary angiogram indicated per 01/2021 cardiology office visit Microscopic hematuria Hyperparathyroidism Hiatal hernia Hypothyroidism Tx [id number], "taken off of meds due to extreme weight loss" Multiple pulmonary nodules monitoring w/ PCP Osteoporosis, post-menopausal Surgical History History of bone marrow biopsy H/O colonoscopy History of esophagogastroduodenoscopy (EGD) + EUS H/O breast biopsy S/P tubal ligation H/O oophorectomy + left salpingectomy H/O dilation and curettage Family History Mother Heart disease Diabetes Myocardial infarction Pancreatic cancer Father CHF (congestive heart failure) Kidney disease Bladder cancer Myocardial infarction Grandfather Myocardial infarction Social History Smoking Status: Never smoker Second Hand Exposure: No; Do You Dip or Chew Tobacco: No; Hx Alcohol Use: No Hx Substance Use: No Preferred Language: Indonesian Communication Ability: Effective Visual Impairment: No Limitations Pump Assembler Required: No Beliefs That Will Affect Care: None Current Living Situation: Alone Other Information That Helps Us Care for You: No Feels Safe at Home: Yes Safety Concerns: Feels Safe At This Time Assistive Devices: None Review of Systems Review of Systems: All systems reviewed & are unremarkable except as noted in HPI & below Physical Exam Physical Exam: Constitutional: Patient appears to be of their stated age. Patient is in no apparent distress. Patient is well-developed. Eyes: Pupils are equal round and reactive to light. Conjunctivae are normal. Anicteric sclera. Ears nose, mouth and throat: Deferred. Neck: Trachea is midline. Visual inspection is normal. Respiratory: Clear to auscultation bilaterally. No use of accessory muscles. No significant clubbing noted. Cardiovascular: Regular rate and rhythm. No murmurs. No edema. Gastrointestinal: Normal bowel sounds, soft, nontender and nondistended. No hepatosplenomegaly noted. Musculoskeletal: No cyanosis. Patient is able to move all extremities. Strength is 5 out of 5 in the upper and lower extremities. Skin: Numerous petechiae noted in the lower extremities bilaterally. Neurologic: No obvious focal neurological deficits seen. Psychiatric: Alert and oriented x3 with a euthymic affect. Results & Data Results & Data Vital Signs (Past 12 Hours) Vital Signs Temp Pulse Pulse Resp BP BP Pulse Ox 06/07/23 08:18 36.4 C L 79 18 127/75 97 06/07/23 08:01 75 06/07/23 05:25 36.5 C 83 20 145/78 H 98 06/06/23 22:32 75 06/06/23 21:30 O2 Del Method 06/07/23 08:18 Room Air 06/07/23 08:01 06/07/23 05:25 Room Air 06/06/23 22:32 06/06/23 21:30 Room Air PG Care Time/CCT Total # of Minutes Spent Total Time Spent with Patient: Total time spent is greater than 50% in coordination of care (as documented) at patient's floor/unit and/or counseling patient: Coding Level of Care Code 81452 INT INP/OBS CARE 3/75MIN Diagnoses Abnormal echocardiogram R93.1 Abnormal CBC R79.89
[2023-06-07 09:18] LABS: BUN Creatinine Ratio 39.4 (10-20); Calcium 9.4 mg/dl (8.6-10.3); Creatinine Clr Calc Pharmacy 44.8 ml/min; Est GFR (African American) 95.9 ml/min; Est GFR (Non-African American) 82.7 ml/min; Phosphorus 3.2 mg/dl (2.5-4.9); Potassium 4.7 mmol/L (3.5-5.1)
[2023-06-07 09:23] LABS: Troponin I High Sensitivity 23.6 pg/ml (0-14)
--- NOTE | 2023-06-07 11:30 | Discharge Summary ---
Discharge Summary Date of Service June 07, 2023 Notes For Next Care Provider Please ensure follow up with Hematology Oncology for bone marrow biopsy Please ensure follow up with Rheumatology Please ensure follow up with Pulmonology Please ensure follow up of lung nodules/findings noted on chest CT Medication Changes From Visit Vitamin D supplement- 50, 000U q7days Admission HPI Per Admitting Provider 78 yo female with complicated PMHx including CVA, CAD, compression fx s/p kyphoplasty, ?plasma cell dyscrasia, osteoporosis, and protein calorie malnutrition presents with syncopal episodes. All of her specialists are with [facility] but remains with a Estefany Morocho PCP. 2 months ago patient had a dose of amoxicillin prior to oral surgery and a few hours after intake experienced severe muscle stiffness. She did discuss this with her oral surgeon and following the surgery was advised to take half dosing going forward. After a few days on the lower dose she developed sudden onset petechiae and bruising over her lower extremities with associated pain. The petechiae and bruising have been slowly improving but are still very evident. Pain is constant even at rest. Then over the past week she has been experiencing some syncopal episodes. She notes that she will feel the episodes come on she will try to brace herself on a chair. Following that she will pass out from anywhere from 1 to 30 minutes and wake up completely normal without confusion. She notes that this morning this occurred about 6 times within 2 hours which prompted her to come to the emergency room. She is with history of chronic fatigue. She also does endorse some shortness of breath on exertion. Otherwise denies headache, vision changes, chest pain, abdominal pain, nausea, vomiting, dysuria. Of note patient states she is very sensitive to medications in general so she been hesitant with pain medications over the years. Admission Exam Per Admitting Provider Constitutional: in no acute distress, pleasant and normal affect, intact memory. AOx3. Vitals as above. HEENT: No scleral injection or discharge.Moist mucous membranes. Clear oropharynx without exudate. Neck: Supple without lymphadenopathy or thyromegaly. Trachea midline. Lungs: Clear to auscultation bilaterally with good effort. No wheezes/rales/rhonchi. Cardiac: RRR. No murmurs.+Trace lower extremity edema R>L. 2+ distal peripheral pulses. Bilateral forefoot cold to touch. Abdomen: Soft, nontender, and nondistended.No guarding. No hepatosplenomegaly. MSK: Extremities motor strength 5/5. Skin: +bilateral lower extremity non blanching petechiae with associated ecchymosis. Neurologic: No focal deficits. PERRL. Principal Dx & Hospital Course #1 = Principal Diagnosis (1) Petechial rash: (2) Ambulatory dysfunction: (3) LOC (loss of consciousness): (4) Pulmonary HTN: (5) Emphysema of lung: Plan Pt is 78yoF with a complex PMHx that includes MGUS, Hyperparathyroidism, Osteoporosis with subsequent Hx of compression fracture of the spine s/p kyphoplasty with Dr Nelson, mood disorder, Aspergers (per pt), chronic malnutrition, neuropathic pain, chronic Pain Syndrome, nocturia presenting with concern for lower extremity petechial rash, bruising and pain that she states has been limiting her ability to walk, as well as episodes of LOC. Petechial skin Rash Bruising Pain, bilateral lower extremities Ambulatory dysfunction Per pt, petechial rash on bilateral lower extremities, bruising and pain started after taking amoxicillin on 04/19/23 prescribed by her dentist. Follows with [facility] Heme/onc for her pancytopenia/Hx of MGUS Notes she also has a economic research analyst that she follows with, unclear from [facility] chart review when she was last seen Per [facility] chart review, question of whether her symptoms were related to a vasculitis Had recent labs on 06/02 that showed negative c-ANCA, P-ANCA, normal c3 and C4 levels and a slightly elevated CRP of 8. Also had a "Flexitest" done which showed that she was positive for an "TRACE IFA" screen Venous Doppler was ordered for bilateral lower extremities with no sign of DVT Heme/onc consult placed for further recs- recommended/stated the following: "Explained to the patient that prior bone marrow biopsy from 2021 and the fact that she has a TET 2 mutation and that bone marrow biopsy makes me highly likely to consider an underlying bone marrow failure syndrome such as myelodysplastic syndrome. I have recommended a bone marrow biopsy for her however the patient wants to talk to her brother as well as the rest of her previous docs including doctors in [facility] before making such a decision." Rheumatology consult placed for further recs, recommended the following: "-Replace vitamin D Determine etiology of proteinuria noted If current rash is not sequelae of underlying bone marrow process, recommend biopsy Consider CT of chest to further evaluate other potential organ involvement from a vasculitic process" Pt considering local follow up with [facility]/Oncologist Dr. Abhijit Magdaleno that she saw while hospitalized as well as Dr Renato Gilmore from Rheumatology. Pt was started on Vitamin D and CT chest noted pulmonary densities/nodules (that require followup) and mild mucous plugging, pt asymptomatic PT/OT ordered for ambulatory dysfunction-OT attempted to evaluate pt multiple times but could not. Pt follows with numerous specialists at [facility], follow up recommended as well PCP follow up after discharge, please consider imaging follow up of lung nodules noted Loss of Consciousness Syncope Pulmonary HTN Pt describes episodes where she loses consciousness, mostly unwitnessed Denies SOB CT head with no acute abnormality MRI brain with no acute findings as well Echo showing EF 65-70%, no wall motion abnormalities, mild LVH, moderate tricuspid regurg and moderate pulmonary HTN Chest xray noting emphysema CT chest noting pulmonary densities/nodules, mild mucous plugging Orthostatics showed an increase in BP from lying to standing. However there was an almost 30 point increase in HR, ?POTS BUN/Cr ratio elevated at 35, placed on IV fluids Monitored on telemetry Seizure and fall precautions No further episodes of loss of consciousness/syncope noted while hospitalized Pulmonology was consulted for noted pulmonary HTN, the following was noted by pulmonology: "Echo this admission revealed an elevated right ventricular systolic pressure of 52 mmHg. Patient denies any symptoms of pulmonary hypertension including shortness of breath with exertion, chronic lower extremity edema or abdominal swelling. She does not have any evidence of JVD or hypoxemia. Given the lack of signs or symptoms, no further workup is required at this time. Should the patient have ongoing syncopal events, right heart catheterization can be pursued to get an accurate measure of her pulmonary wedge pressure, mean pulmonary artery pressures and calculate her pulmonary vascular resistance. The elevated pulmonary pressures seen may be due to multifactorial reasons including mild concentric LVH, occult obstructive lung disease and chronic high output cardiac dysfunction related to severe anemia. Again, she is asymptomatic. Other etiologies include a mixed connective tissue disorder such as scleroderma. If she ultimately becomes symptomatic and is identified as having true pulmonary arterial hypertension, she would need a more extensive workup including serologies to look for a mixed connective tissue disorder, ultrasound of her liver, CT chest with PE protocol/VQ scan, HIV testing, polysomnography and PFTs. I reviewed the non-contrast CT chest from today. The patient does not have emphysema." PCP, pulmonology follow up after discharge recommended. Emphysema Moderate pulmonary HTN Incidental pulmonary nodules Chest XRAY noting hyperexpanded lungs, emphysema CT chest noting pulmonary densities/nodules, mild mucous plugging Echo as noted above with moderate pulmonary HTN Pulmonary consult placed for further recommendations: pulmonary recommendations as noted above -In particular per pulm- "I reviewed the non-contrast CT chest from today. The patient does not have emphysema." " PCP and pulm follow up after discharge, please consider imaging follow up of lung nodules noted Vitamin D Deficiency Vit D level of 9.4 on admission Started on supplementation with PO D2 50, 000U qweekly x 6-8 weeks, continue with daily supplementation afterwards PCP followup Elevated troponin hs-Troponin elevated at 27.6 on admission, downtrended to 21.3 EKG with NSR Echo as noted above showing EF 65-70%, no wall motion abnormalities, mild LVH, moderate tricuspid regurg and moderate pulmonary HTN Doubt ACS, consider cardiology follow up if pt symptomatic Chronic Malnutrition Hhas consult placed. Mood Disorder Insomnia Chronic Pain Syndrome Per pt she takes nightly Valium to help with both insomnia AND PAIN, states she was told it was "one stop shopping" States that she would like her Valium to be available at night along with her tylenol Pt states she has 2 pcps, per PDMP Valium prescribed by [facility] PCP Dr. Yu. Last prescribed and filled on 05/31. Per Dr Yu, prescribed as diazepam 5mg qhs prn (1-2 pills), pt given 60 pills. Valium ordered 5mg qhs SCHEDULED with additional 5mg dose prn if pt requests second dose to limit risk of delirium given pt's age and new hospital setting. Delirium precautions. Frequent reorientation, avoid sedating medications Continue Tylenol 1000mg q8h ordered prn PCP follow up MGUS Pancytopenia Pt has had bone marrow biopsies x2 Follows with [facility] Hematology and states she has been diagnosed with MGUS. Further workup per Hematology as noted above -pt considering transfer to Dr Magdaleno locally, provided with card and contact on discharge Otherwise follow up with [facility] store operations specialist recommended Hyperparathyroidism-stable Osteoporosis, Hx of compression fracture- stable Nocturia- follows with urology, stable Discharge Exam General: Alert, oriented. No acute distress Skin: petechiae and bruising noted on lower extremities bilaterally Psych: Appropriate mood and affect Neuro: No gross deficits while sitting in bed HEENT: NC/AT Chest: Nontender to palpation. CV: RRR Resp: Breath sounds clear bilaterally, no increased effort of breathing. Abdomen: Soft Extremities: petechiae and bruising noted on lower extremities bilaterally Updated Medication List Medication Instructions Recorded Confirmed Type diazepam 5 mg tablet See Rx Instructions PO HS PRN 05/31/23 06/05/23 Rx muscle spasm #60 tabs ergocalciferol (vitamin D2) 1,250 50,000 unit PO Q7D #7 caps 06/07/23 Rx mcg (50,000 unit) capsule Hospital Stay Data Consultations 06/05/23 16:42 ED Decision to Admit Stat 06/06/23 12:09 Consult Hematology Routine 06/06/23 12:19 Consult Rheumatology Routine 06/06/23 17:28 Consult Pulmonology Routine Diagnostic Imagining Performed 06/05/23 16:42 US venous doppler LE BI Stat 06/05/23 19:22 CT head/brain wo con Stat 06/06/23 17:09 MRI Brain [MR brain wo/w con] Routine 06/07/23 08:30 CT chest diagnostic wo con Routine Chest X-Ray 06/05/23 15:08 XR chest 1V not portable HISTORY: Chest pain, nonspecific COMPARISON: Chest 01/19/2022. FINDINGS: No pneumothorax. No pleural effusions. The lungs remain hyperexpanded. The heart is normal in size. Biapical densities persist and favor scarring. No new focal lung consolidations to suggest a pneumonia. No evidence for pulmonary edema. Emphysema again noted. No acute fractures. Vertebroplasty at L1. Calcifications within the aortic knob. IMPRESSION: No significant change compared to the prior study. No acute process. ACT 112: Negative or not required by law. Electronically signed by: Lukas Thomas M.D. 06/05/2023 4:36 PM Venous Doppler Study 06/05/23 16:42 BILATERAL LOWER EXTREMITY VENOUS DOPPLER HISTORY: Right leg swelling, petechiae, bruising COMPARISON STUDY: None. FINDINGS: There is normal compressibility, flow, and augmentation within the bilateral lower extremity deep venous systems. IMPRESSION: No DVT within the right or left lower extremity. ACT 112: Negative or not required by law. Electronically signed by: Lukas Thomas M.D. 06/05/2023 6:[address] 06/05/23 19:22 Exam(s): CT HEAD Without Contrast EXAM: CT Head Without Intravenous Contrast CLINICAL HISTORY: Reason for exam: syncope. TECHNIQUE: Axial computed tomography images of the head/brain without intravenous contrast. CTDI is 35.65 mGy and DLP is 624.41 mGy-cm. Automated exposure control was utilized for the study. A dose lowering technique was utilized adhering to the principles of ALARA. COMPARISON: No relevant prior studies available. FINDINGS: Brain: Chronic periventricular ischemic demyelination changes seen due to small vessel disease. No hemorrhage. Ventricles: Unremarkable. No ventriculomegaly. Bones/joints: Unremarkable. No acute fracture. Soft tissues: Unremarkable. Sinuses: Unremarkable as visualized. No acute sinusitis. Mastoid air cells: Unremarkable as visualized. No mastoid effusion. IMPRESSION: No acute intracranial abnormality Electronically signed by: Cedrick Arellano MD 06/05/23 20:53 PM Brain MRI 06/06/23 17:09 Exam(s): MRI HEAD W/WO Contrast IV Amt: 4.5cc gadavist EXAM: MR Head Without and With Intravenous Contrast CLINICAL HISTORY: Reason for exam: loss of consciousness. TECHNIQUE: Magnetic resonance images of the head/brain without and with intravenous contrast in multiple planes. Mild to moderate motion artifact. CONTRAST: Patient received 4.5cc Gadavist of IV contrast COMPARISON: Head CT 06/05/23. FINDINGS: Brain: No mass effect or acute infarct. No acute hemorrhage. Mild atrophy and chronic white matter disease. No abnormal enhancement or other areas of abnormal signal in the brain parenchyma. Ventricles: No hydrocephalus or midline shift. Bones/joints: No acute bony lesion. Soft tissues: No scalp hematoma. Sinuses: Clear. Mastoid air cells: No mastoid effusion. IMPRESSION: 1. Mild age-related findings. 2. No abnormal enhancement, acute infarct, bleed, or acute intracranial abnormality. Electronically signed by: Zora Sumner M.D. 06/06/23 20:[address] 06/07/23 08:30 CT chest diagnostic wo con CT DOSE: 202.77 mGy.cm CLINICAL HISTORY: 78 years-old Female with vasculitis workup per rheum. Follow- up study in a patient with history of recent acute chest pain. TECHNIQUE: Multiaxial CT images of the chest were performed without contrast. A dose lowering technique was utilized adhering to the principles of ALARA. COMPARISON: Chest radiograph 06/05/2023. FINDINGS: Unremarkable thyroid. There is no lymphadenopathy. The heart is normal in size. Extensive coronary artery calcifications. Atherosclerosis of the thoracic aorta without aneurysm. Trace pleural effusions. No pneumothorax, pleural effusion or overt pulmonary edema. Biapical pleural-parenchymal scarring. Mild bibasilar mucous plugging with intralobular septal thickening and mild patchy bibasilar ground-glass densities. Additionally, there are a few scattered low-suspicious solid nodular foci within the lung bases measuring up to 4-5 mm. The lungs are mildly hyperinflated. Central airways are patent. No acute upper abdominal abnormality. Atherosclerosis of the aorta. Unremarkable soft tissues. Chronic L1 compression deformity with retropulsion and kyphoplasty. Additional T8, T9 and L2 compression fractures are technically age indeterminate, however, are favored to be chronic. No definite acute fracture is identified. IMPRESSION: 1. No thoracic aortic aneurysm. 2. Mild bibasilar mucous plugging with subsegmental bibasilar densities, which are likely infectious or inflammatory. 3. Bibasilar solid nodular foci measuring up to 5 mm are also likely infectious or inflammatory. 4. No lymphadenopathy. 5. No pleural effusion. Please refer to below summary of Fleischner criteria recommendations for follow- up of incidental CT nodules (Ramone Gil, Guidelines for management of small pulmonary nodules detected on CT scans: A statement from the Fleischner Society, Radiology 237: [phone].) SOLID NODULES Multiple nodules size: <6 mm * Low risk patients: no routine follow-up * high risk patients: optional CT at 12 months Note: newly detected indeterminate nodule in persons 35 years of age or older. * Low risk patients: minimal or absent history of smoking and/or other known risk factors * high risk patients: history of smoking or of other known risk factors (e.g. first degree relative with lung cancer, or exposure to asbestos, radon, uranium) * if a nodule up to 8 mm is partly solid or is ground glass further follow-up is required after 24 months to exclude possible slow growing adenocarcinoma (ADRIA) ACT 112: Negative or not required by law. Dictated: 06/07/2023 9:06 AM Transcribed: 06/07/2023 9:20 AM Paul [id number] [email or web address] Electronically signed by: Selvin Billinglsey M.D. 06/07/2023 1:15 PM Pending Results Patient Have Any Pending Studies at Discharge: No Discharge Instructions Given to Patient (Per Discharging Provider) Ms. Reaves, We admitted you as you had concerning episodes where you would lose consciousness and a concerning rash. You were seen by the tool designer apprentice oncologist who recommends a biopsy and is happy to see you in the outpatient setting for follow up. You were also seen by the economic research analyst who is also happy to follow up with you in the outpatient setting. We monitored your heart and vitals while you were here and also did further testing. You did not have further episodes of loss of consciousness. It was noted that you had pulmonary hypertension and you were seen by the insurance risk analyst who did not feel that this was concerning as you had no further symptoms. We also noted that your vitamin D levels were very low. We treated you with supplementation that you take once a week. Please continue to take that at home every Monday for 7 more weeks. Your primary care provider will follow up on this and prescribe you further treatment as needed. Please keep close follow up with your primary care provider and all your specialists after discharge. It was a pleasure taking care of you while you were here. Total Time Total Time Spent Total Time Spent (In Minutes): > 30 minutes
[2023-06-07] MEDS: SODIUM CHLORIDE 0.9% 1,000 ML IV SCH (12:40)
--- NOTE | 2023-06-07 13:16 | CT Scan Report ---
CT chest diagnostic wo con CT DOSE: 202.77 mGy.cm CLINICAL HISTORY: 78 years-old Female with vasculitis workup per rheum. Follow-up study in a patient with history of recent acute chest pain. TECHNIQUE: Multiaxial CT images of the chest were performed without contrast. A dose lowering techni que was utilized adhering to the principles of ALARA. COMPARISON: Chest radiograph 06/05/2023. FINDINGS: Unremarkable thyroid. There is no lymphadenopathy. The heart is normal in size. Extensive c oronary artery calcifications. Atherosclerosis of the thoracic aorta without aneurysm. Trace pleural effusions. No pneumothorax, pleural effusion or overt pulmonary edema. Biapical pleural -parenchymal scarring. Mild bibasilar mucous plugging with intralobular septal thickening and mild pa tchy bibasilar ground-glass densities. Additionally, there are a few scattered low-suspicious solid n odular foci within the lung bases measuring up to 4-5 mm. The lungs are mildly hyperinflated. Central airways are patent. No acute upper abdominal abnormality. Atherosclerosis of the aorta. Unremarkable soft tissues. Chroni c L1 compression deformity with retropulsion and kyphoplasty. Additional T8, T9 and L2 compression fr actures are technically age indeterminate, however, are favored to be chronic. No definite acute frac ture is identified. IMPRESSION: 1. No thoracic aortic aneurysm. 2. Mild bibasilar mucous plugging with subsegmental bibasilar densities, which are likely infectious or inflammatory. 3. Bibasilar solid nodular foci measuring up to 5 mm are also likely infectious or inflammatory. 4. No lymphadenopathy. 5. No pleural effusion. Please refer to below summary of Fleischner criteria recommendations for follow-up of incidental CT n odules (Ramone Gil, Guidelines for management of small pulmonary nodules detected on CT scans: A sta tement from the Fleischner Society, Radiology 237: [phone].) SOLID NODULES Multiple nodules size: <6 mm * Low risk patients: no routine follow-up * high risk patients: optional CT at 12 months Note: newly detected indeterminate nodule in persons 35 years of age or older. * Low risk patients: minimal or absent history of smoking and/or other known risk factors * high risk patients: history of smoking or of other known risk factors (e.g. first degree relative with lung cancer, or exposure to asbestos, radon, uranium) * if a nodule up to 8 mm is partly solid or is ground glass further follow-up is required after 24 m onths to exclude possible slow growing adenocarcinoma (ADRIA) ACT 112: Negative or not required by law. Dictated: 06/07/2023 9:06 AM Transcribed: 06/07/2023 9:20 AM Paul [id number] [email or web address] Electronically signed by: Selvin Billingsley M.D. 06/07/2023 1:15 PM
[2023-06-07] MEDS ORDERED: diazePAM 5 MG TABLET PO SCH (21:00)
[2023-06-08 03:24] LABS: 7-Aminoclonaz, Confirm NEGATIVE ng/mL (<25); Hydro-Alp Ur, GC/MS NEGATIVE ng/mL (<25); Hydroxyethylflurazepam, Conf NEGATIVE ng/mL (<50); Hydroxymidazolam Ur, GC/MS NEGATIVE ng/mL (<50); Hydroxytriazolam NEGATIVE ng/mL (<50); Lorazepam, Ur GC/MS NEGATIVE ng/mL (<50); Nordiazepam, Confirm 1680 ng/mL (<50); Oxazepam Ur, GC/MS >2000 ng/mL (<50); Temazepam, Confirm >2000 ng/mL (<50)
== END 2023-06-07 14:22 | disposition home or self-care (01) | DRG 312 ==
LOC: ED 14:56 → SUATTDRO 17:47 → EDINP 17:47 → 2S 20:46